=== PATIENT | male | born 1950 | race Caucasian/White ===

== ENCOUNTER → 2018-07-22 09:32 | Outpatient (CLI) | payer OTHER, SELFPAY ==
--- NOTE | 2018-07-22 09:58 | STEWCON_ITS ---
Reason For Study: Pre-Op, Cancer Stress Results Protocol: Dobutamine Stress Echo Maximum Predicted HR: 154 bpm Target HR: 131 bpm% Maximum Pre dicted HR: 90 % DurationHeart Rate Stage (mm:ss) (bpm) BPCom ment Baseline 76 127/96 No Chest Pain; Definity 0.9 ML Given DSE 10 MCG 3:51 91 126/82No Chest Pain DSE 20 MCG 3:00 12 7 137/79No Chest Pain DSE 30 MCG 2:06 13 9 164/84No Chest Pain Recovery 91 141/92 No Chest Pain Stress Duration: 8:57 mm:ss Maximum Stress HR: 139 bpmM ETS: 1 Baseline Echocardiogram Findings Stress Echo Wall motion Data Resting WMIntermediate WMStress WM Resting Wall Motion Wall Motion Stress Mid-Inferior: Hypokinetic. Ejection Fraction 50 %. Anterior [place] : Akinetic. Anterior [place] : Akinetic. Lateral [place] : Akinetic. Inferior [place] : Akinetic. Septall [place] : Akinetic. Lateral [place] : Akinetic. Mid-anteroseptal : Hypokinetic. Septall [place] : Akinetic. Ejection Fraction 35 %. Basal inferoseptal: Hypokinetic. Interpretation Summary Dobutamine stress echocardiogram with contrast. Resting EKG demonstrates normal sinus rhythm with rate of 92 bpm poor R-wave progression is noted evidence of anterior infarct is present. Resting blood pressure is 127/96 mmHg. Debridement was infused starting at 10 mcg/kg/min increasing in 3 minute time periods to a maximum of 30 mcg/kg/min. The maximum heart rate attained was 139 bpm which was 91% of maximum predicted heart rate. The patient maintained sinus rhythm throughout the recording. At rest there were no ST or T- wave changes noted suggest ischemia at peak infusion upsloping ST changes only were noted with no meet the criteria for ischemia. No clinical angina was noted. The resting blood pressure was 127/96 with a peak blood pressure of 164/84 mmHg. Resting echocardiogram. The resting echocardiogram with contrast demonstrated reduced left ventricular systolic function the apex was noted to be akinetic the inferior basal wall noted to be severely hypokinetic, the lateral wall was normal. The anterior wall was also noted to be normal. Dobutamine was infused and images were obtained. At peak infusion the apex remained akinetic in the basal inferior wall similarly remained hypokinetic. There was augmentation of the lateral wall as well as the basal and mid anterior wall. The above is suggestive of a previous extensive infarct involving the anterior apical wall as well as the basal inferior wall. No obvious ischemia or new wall motion abnormalities are noted. Conclusion: Abnormal dobutamine stress echo with abnormal resting echocardiogram as noted above with previous anterior apical and inferior basal infarct. No obvious ischemia noted. Cardiomyopathy present. Ordering Physician: Ketan Inman Referring Physician: Jc John Performed By: Crys Mckenzie, RDCS, RVT
== END ==
PROVIDERS: Family Provider Family Medicine; PCP Family Medicine; Visit Provider Internal Medicine Hematology & Oncology
DX: Z00.6 Encounter for examination for normal comparison and control in clinical research program (principal); C15.5 Malignant neoplasm of lower third of esophagus; R07.89 Other chest pain
CPT/HCPCS: 93017; 93350; J7030; Q9957; A4216; C8928

== ENCOUNTER → 2018-09-16 12:17 | Outpatient (CLI) | payer OTHER, SELFPAY ==
[2018-09-16 13:03] LABS: Absolute Neutrophil Count 5.8 X10^3/uL (2.0-7.7); Basophil# 0.01 X10^3/uL; Basophil% 0.2 % (0-1); Hematocrit 44.1 % (40-54); Hemoglobin 13.5 g/dl (13.0-16.5); Lymphocyte % 4.8 % (19-41); Mean Corp Hgb Conc 30.6 g/gl (32-36); Mean Corpuscular Hgb 30.3 pg (27.0-32.0); Mean Corpuscular Volume 99.1 fL (80-94); Mean Platelet Vol. 11.4 fl (6.2-12.0); Monocyte# 0.04 X10^3/uL; Monocyte% 0.6 % (0-10); Neutrophil # 5.82 X10^3/uL (2.7-7.7); Neutrophil % 93.8 % (47-70); Platelet Count 186 K/mm3 (150-450); RBC Distribution Width CV 15.7 % (11.6-14.6); RBC Distribution Width SD 55.7 fl (35.1-43.9); Red Blood Count 4.45 M/mm3 (4.6-6.2); White Blood Count 6.2 K/mm3 (4.4-11.0)
[2018-09-16 13:05] LABS: Differential Indicated SCAN CRITERIA MET; POSITIVE COUNT NO; POSITIVE DIFFERENTIAL YES; POSITIVE MORPHOLOGY NO
== END ==
PROVIDERS: Family Provider Family Medicine; PCP Family Medicine; Referring Provider Internal Medicine Hematology & Oncology; Visit Provider Internal Medicine Hematology & Oncology
DX: C15.5 Malignant neoplasm of lower third of esophagus (principal)
CPT/HCPCS: 85025

== ENCOUNTER 2019-04-18 10:31 | Inpatient (IN) | payer MEDICARE, SELFPAY ==
[2019-04-18] VITALS (10 sets, daily range): BP systolic 145–164; BP diastolic 76–108; PULSE 108–133; RESP 16–20; TEMP 36.6–37.2; O2SAT 92–100; BMI 30.3; BMI 27.7
--- NOTE | 2019-04-18 | FLU_PTH ---
PATIENT: BUTCH SUH LOC: [facility] U#:[id number] AGE/SX: 69/M ROOM: [facility] RE04/18/[address]: Dr. Miguel Cardenas MD : 1950 BED: 1 DIS: 04/20/2019 SPEC #: [id number] RECD: 04/18/19 16:06 STATUS: MAMTA RELivia #: [id number] ANDREINA: 04/18/19 00:[address]: Miguel Cardenas DEPT: CYTOLOGY RECD BY: Ulises Castanon ENTERED: 04/21/19 09:54 SP TYPE: Fluid OTHR DR: MD Dr. Ketan Salinas DO Dr. Wisam Martini, MD No Primary Care Phys Tissues: PARACENTESIS FLUID Procedures: Special Stain Group II Surgery Specimen Level IV Cytospin Fluid HEADER OPERATION: Ultrasound guided right paracentesis PRE-OP DIAGNOSIS: Ascites, new onset TISSUE SUBMITTED: Paracentesis fluid for cytology DIAGNOSIS CYTOLOGY Ascites fluid, paracentesis, cytology monolayer and cell block: Negative for malignant cells. Mononuclear cells, mesothelial cells, lymphocytes and red blood cells present. CE:deborah 04/22/19 CYTOLOGY STUDY Slides are reviewed. CYTOLOGY GROSS Received is 55 ml of yellow cloudy fluid labeled with the patient's name and and designated per the requisition as paracentesis fluid. Submitted for cytology preparation including cell block. / RB:alejandra 04/21/19 TC:3 CPT: 09008, 48977
--- NOTE | 2019-04-18 10:52 | CT_ITS ---
STUDY: CT ABDOMEN AND PELVIS WITH CONTRAST REASON FOR EXAM: Male, 69 years old. Abdominal distention. Esophageal cancer. RADIATION DOSAGE (If Supplied By Facility): CTDIvol = ( 12.33 ) mGy, DLP = ( 1400.76 ) mGycm TECHNIQUE: Transaxial images were obtained from the dome of the diaphragm to the symphysis pubis without oral contrast. 100 IV Isovue 370 was administered. Sagittal and coronal images were reconstructed. Individualized dose optimization techniques were used for this CT. COMPARISON: None. FINDINGS: Lung bases: Unremarkable. Heart: Suspected low density clot within the left ventricle (axial image 30 series 1004). Liver: Punctate hepatic granuloma (axial image 19 series 1002). No additional hepatic lesions. Portal vein patent. Gallbladder/biliary ducts: Unremarkable. Pancreas: Pancreatic atrophy. Spleen: Tiny splenic granulomas. Adrenal glands: 3 cm right adrenal nodule (axial image 32 series 1002). Kidneys/ureters/bladder: Left renal cyst (axial image 37 series 1002). Tiny right renal cyst (axial image 63 series 1002). Otherwise bilateral normal renal contrast enhancement. Nondistended ureters. Normal urinary bladder. Prostate: Borderline prostatomegaly. Prostate calcifications. Large bowel/small bowel: No acute large bowel or small bowel process. Appendix: Not visualized. No secondary signs of appendicitis. Gastroesophageal junction/stomach: Markedly distended fluid-filled esophagus with thickening (axial images 5 through 21 series 1002). No gastric thickening. No perforation. Retroperitoneum/lymph nodes: No intra-abdominal free air. Extensive intraabdominal/pelvic ascites. No pathologically enlarged lymph nodes. Diffuse heterogeneous mesenteric nodularity (axial image 51 series 1002). Vascular: Vascular calcifications without aneurysm. Osseous structures: Mild degenerative changes. No acute process. Subcutaneous/soft tissues: Small fat-containing inguinal hernias without complication. Small fat-containing umbilical hernia. No acute process. CT/Abdomen/Pelvis W IV Cont ONLY IMPRESSION: Dilated thickened fluid-filled esophagus (statistically related to patient's history of esophageal cancer; aspiration precautions recommended) 3 cm right adrenal nodule concerning for possible metastatic disease Diffuse heterogeneous mesenteric nodularity concerning for 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 : The above information has been verbally conveyed by Bryant Lancaster DO to Gregg Snell MD, on 04/18/2019 13:22:25 (ET). Electronically Signed: Bryant Lancaster DO at 13:18 EDT Tel , Service support ,
[2019-04-18] MEDS: Morphine 4 MG/ML Syringe IV (11:36)
[2019-04-18] MEDS: Ondansetron 4 MG/2 ML Vial IV ×2 (11:36→14:55)
[2019-04-18] MEDS: 0.9% Normal Saline 1,000 ML 125 ML IV ×2 (11:36→17:48)
[2019-04-18 11:42] LABS: Absolute Lymphocyte Count 0.56 X10^3/ul (0.83-4.51); Absolute Neutrophil Count 10.3 X10^3/uL (2.0-7.7); Basophil# 0.02 X10^3/uL; Basophil% 0.2 % (0-1); Eosinophil# 0.06 X10^3/uL; Eosinophils% 0.5 % (0-5); Hematocrit 42.8 % (40-54); Hemoglobin 13.5 g/dl (13.0-16.5); Lymphocyte # 0.56 X10^3/ul (4.0); Lymphocyte % 4.6 % (19-41); Mean Corp Hgb Conc 31.5 g/gl (32-36); Mean Corpuscular Hgb 29.4 pg (27.0-32.0); Mean Corpuscular Volume 93.2 fL (80-94); Mean Platelet Vol. 9.8 fl (6.2-12.0); Monocyte# 1.18 X10^3/uL; Monocyte% 9.7 % (0-10); Neutrophil # 10.28 X10^3/uL (2.7-7.7); Neutrophil % 84.8 % (47-70); Platelet Count 433 K/mm3 (150-450); RBC Distribution Width CV 14.5 % (11.6-14.6); RBC Distribution Width SD 49.2 fl (35.1-43.9); Red Blood Count 4.59 M/mm3 (4.6-6.2); White Blood Count 12.1 K/mm3 (4.4-11.0)
[2019-04-18 11:43] LABS: Differential Indicated SCAN CRITERIA MET; POSITIVE COUNT NO; POSITIVE DIFFERENTIAL YES; POSITIVE MORPHOLOGY NO
[2019-04-18 11:52] LABS: AST(SGOT) 17 U/L (15-37); Alanine Aminotransfer ALT/SGPT 19 U/L (16-61); Albumin, Serum 3.1 g/dL (3.2-5.0); Alkaline Phosphatase 108 U/L (45-117); Anion Gap 2 (5-15); BUN 25 mg/dL (7-18); BUN/Creat Ratio 21.2 RATIO (10-20); Bilirubin, Direct 0.15 mg/dL (0.00-0.30); Calcium,Total 10.5 mg/dL (8.5-10.1); Chloride 100 mmol/L (98-107); Creatinine, Serum 1.18 mg/dL (0.70-1.30); EST Glomerular Filtration Rate 65 mL/min (>60); Est Glom Filt Rate - Afr Amer 79 mL/min (>60); Estimated Creatinine Clearance 60.75 ml/min; Globulin 4.2 g/dL (2.2-4.2); Glucose 121 mg/dL (74-106); Lipase 37 U/L (73-393); Potassium 4.4 mmol/L (3.5-5.1); Protein, Total 7.3 g/dL (6.4-8.2); Sodium Level 134 mmol/L (136-145)
[2019-04-18 12:01] LABS: Lactic Acid 1.5 mmol/L (0.4-2.0)
[2019-04-18 12:03] LABS: Partial Thromboplast Time 30.2 Seconds (24.1-36.2)
[2019-04-18 12:10] LABS: Prothrombin Time (Protime)PT. 13.1 SECONDS (11.7-14.9)
[2019-04-18] MEDS: LORazepam 2 MG/ML Syringe 1 MG IV (12:41)
--- NOTE | 2019-04-18 13:11 | US_ITS ---
PROCEDURE: ULTRASOUND GUIDED PARACENTESIS CLINICAL HISTORY: Male, 69 years old. CONSENT: Time-Out Called: Yes. Consent form signed: Yes. PT-PTT Levels Checked: Yes. SEDATION: TECHNIQUE: FINDINGS: Under ultrasound guidance and the following appropriate antiseptic preparation and local anesthesia. A draining catheter was introduced into the right lower quadrant. 7070 cc of clear yellow fluid were aspirated. 120 ml of fluid were sent to the lab for assessment. US/Paracentesis with US IMPRESSION: Uneventful paracentesis Electronically Signed: Delaney Navarro, at 16:35 EDT Tel , Service support ,
--- NOTE | 2019-04-18 13:23 | ED.RN ---
MILLY WITH [facility] AWARE THAT PT IS HERE. IS NOT SURE THAT THEY HAVE BEDS, OK TO ADMIT TO [facility] FLOOR
--- NOTE | 2019-04-18 14:05 | HP.PCM_ITS ---
Problem List (1) Metastatic cancer Status: Acute (2) Ascites, malignant Status: Acute (3) CAD (coronary artery disease) Status: Chronic Qualifiers: Coronary Disease-Associated Artery/Lesion type: unspecified vessel or lesion type [place] vs. transplanted heart: unspecified whether [place] or transplanted heart Associated angina: angina presence unspecified Qualified Code(s): I25.10 - Atherosclerotic heart disease of [place] coronary artery without angina pectoris (4) Esophageal cancer Status: Chronic Qualifiers: Malignant neoplasm of esophagus location: unspecified location Qualified Code(s): C15.9 - Malignant neoplasm of esophagus, unspecified (5) HTN (hypertension) Status: Chronic Qualifiers: Hypertension type: essential hypertension Qualified Code(s): I10 - Essential (primary) hypertension (6) HLD (hyperlipidemia) Status: Chronic Qualifiers: Hyperlipidemia type: unspecified Qualified Code(s): E78.5 - Hyperlipidemia, unspecified (7) Tobacco use Status: Chronic History of Present Illness Date of Admission: 04/18/19 Chief Complaint: Abdominal pain, dyspnea. The patient is a 69 y/o M w/ PMHx: Recent diagnosis and treatment for esophageal cancer in 2018 with chemotherapy and radiation in [place] at the [facility] [place], [place] but prior to that had been following with Dr. Cooley and Dr. Inman, Tobacco use, Hypertension, Hyperlipidemia, Hx [place] without any PCI interventional needs who presents to the [facility] ED on 04/18/19 with history of several week history of progressively worsening abdominal distention, dyspnea, worse with any exertional attempts as well as onset now abdominal discomfort and noted tenseness of his abdomen with worsening debility and weakness with concurrent poor appetite. Work-up in the ED included T 97.9, heart rate 110, BP 154/92, respiratory rate 17, 99% on room air, CBC with WC 12.1, hemoglobin 13.5, platelet 433 with left shift, unremarkable coags, CMP with sodium 134, BUN/Cr 25/1.18, glucose 121, LA 1.5, lipase 37, ammonia 14, CT abdomen and pelvis with dilated thickened fluid- filled esophagus, 3 cm right adrenal nodule concerning for possible metastatic disease, diffuse heterogeneous mesenteric nodularity concerning for possible mesenteric carcinomatosis with ascites, suspected clot within the left ventricle. Patient underwent paracentesis directed per ED physician with consultation with hospitalist for appropriate diagnostic labs to be obtained concurrently. In the ED patient had been administered normal saline, Zofran, morphine as well as Ativan for anxiety. Past Medical History Past Medical History (Chronic Problems): Chronic Problems CAD (coronary artery disease) (Chronic) Esophageal cancer (Chronic) HTN (hypertension) (Chronic) HLD (hyperlipidemia) (Chronic) Tobacco use (Chronic) Allergies No Known Allergies Allergy (Verified 04/18/19 10:33) Home Medications: Ambulatory Orders Medication Instructions Recorded Atorvastatin Calcium 40 mg PO DAILY 04/18/19 Hydrocodone/Acetaminophen 1 tab PO TID PRN PRN 04/18/19 [Hydrocodone-Acetamin 10-325 mg] Meloxicam 15 mg PO DAILY 04/18/19 Metoprolol Succinate 50 mg PO DAILY 04/18/19 Omeprazole [Prilosec] 40 mg PO DAILY 04/18/19 Surgical History: - - Patient denies any surgical history. Psychiatric History: No pertinent psych hx Lives: Spouse/ Significant Other Smoking Status: Current every day smoker - Patient currently smokes 1/2 pack/day cigarette tobacco usage. Tobacco Use: Cigarettes Alcohol: None Drugs: None - *Family History Maternal History Items: Heart Disease Paternal History Items: - - Patient notes a paternal family history of heart disease as well as chronic COPD with a prior tobacco use history. Review of Systems Constitutional: Reports: Anorexia, Malaise, Weakness, Fatigue. Denies: Chills, Fever, Weight Change HEENT: Denies: Head Aches, Sinus Congestion, Sinus Drainage Cardiovascular: Reports: Orthopnea. Denies: Chest Pain, Palpitations Respiratory: Reports: Shortness of Breath, Shortness of breath at rest, Shortness of breath upon exertion. Denies: Cough, Sputum production, Wheezing Gastrointestinal: Reports: Abdominal Pain, Constipation. Denies: Nausea, Vomiting Genitourinary: Denies: Dysuria Musculoskeletal: Reports: Back Pain, Joint Pain. Denies: Joint Tenderness Skin: Denies: Rash, Wounds Neurological: Denies: Numbness, Tingling, Focal weakness Psychiatric: Denies: Anxiety, Depression, Homicidal Ideations, Suicidal Ideations Hematologic/ Lymphatic: Reports: Easy Bruising, Easy Bleeding VTE Information - Inpt Only VTE Present on Admission: No VTE Mechan Device Prophylaxis: SCD's VTE Pharm Prophylaxis ordered?: Yes Patient Problems: Active and Suspected Problems Metastatic cancer (Acute) Ascites, malignant (Acute) Subjective: Seated upright in the ED bed, fatigued appearance, uncomfortable appearing. Objective: Physical Examination: General: awake, alert, oriented x 3 and cooperative, seated upright in the ED bedside chair, uncomfortable appearing. Skin: normal color, turgor, no icterus, cyanosis. HEENT: AT/NC, EOMI, PERRLA, dry MM, no carotid bruits or JVD noted. Lungs: Diminished breath sounds bilaterally, greater bilateral bases, moderate effort, no rales, ronchi or wheezing. Heart: Regular rate and rhythm; no gallop, rub audible. Abdomen: Tense, generalized discomfort with palpation, notably distended, di stant hypoactive bowel sounds, difficult to assess HSM secondary to distended habitus. Extremities: no cyanosis, clubbing, or edema. Neurological: patient awake, alert, oriented x 3; cognitive function intact; pupils equally reactive to light and accomodation; cranial nerves II-XII grossly normal, moving all 4 extremities, no focal deficits, strength Artley global decreased secondary to acute complaints and ongoing comorbidities. Psychiatric: affect appears fatigued, no acute evidence of depressive or anxiety feelings. - Physical Exam Vital Signs Temp Pulse Resp BP Pulse Ox 97.9 F 108 H 19 H 159/101 H 92 04/18/19 10:33 04/18/19 12:59 04/18/19 12:59 04/18/19 12:59 04/18/19 12:59 Oxygen Delivery Method Room Air Weight: 205 lb 7.533 oz Body Mass Index (BMI) 30.3 Laboratory Tests Past 24 Hrs 04/18/19 04/18/19 04/18/19 11:23 11:23 11:23 WBC 12.1 H RBC 4.59 L Hgb 13.5 Hct 42.8 MCV 93.2 MCH 29.4 MCHC 31.5 L RDW 14.5 RDW Differential 49.2 H Plt Count 433 MPV 9.8 Immature Gran % (Auto) 0.200 Neut % (Auto) 84.8 H Lymph % (Auto) 4.6 L Crisp % (Auto) 9.7 Eos % (Auto) 0.5 Baso % (Auto) 0.2 Absolute Neuts (auto) 10.3 H Absolute Lymphs (auto) 0.56 L Total Counted Not Reportable Differential Comment COMMENT PT 13.1 INR 1.0 APTT 30.2 Sodium 134 L Potassium 4.4 Chloride 100 Carbon Dioxide 32.0 Anion Gap 2 L BUN 25 H Creatinine 1.18 Estim Creat Clear Calc 60.75 Est GFR (MDRD) Af Amer 79 Est GFR (MDRD) Non-Af 65 BUN/Creatinine Ratio 21.2 H Glucose 121 H Lactic Acid Calcium 10.5 H Total Bilirubin 0.60 Direct Bilirubin 0.15 AST 17 ALT 19 Alkaline Phosphatase 108 Total Protein 7.3 Albumin 3.1 L Globulin 4.2 Lipase 37 L 04/18/19 11:23 WBC RBC Hgb Hct MCV MCH MCHC RDW RDW Differential Plt Count MPV Immature Gran % (Auto) Neut % (Auto) Lymph % (Auto) Crisp % (Auto) Eos % (Auto) Baso % (Auto) Absolute Neuts (auto) Absolute Lymphs (auto) Total Counted Differential Comment PT INR APTT Sodium Potassium Chloride Carbon Dioxide Anion Gap BUN Creatinine Estim Creat Clear Calc Est GFR (MDRD) Af Amer Est GFR (MDRD) Non-Af BUN/Creatinine Ratio Glucose Lactic Acid 1.5 Calcium Total Bilirubin Direct Bilirubin AST ALT Alkaline Phosphatase Total Protein Albumin Globulin Lipase Assessment/Plan All Active Problems Metastatic cancer (Acute) Ascites, malignant (Acute) The patient is a 69 y/o M w/ PMHx: Recent diagnosis and treatment for esophageal cancer in 2018 with chemotherapy and radiation in [place] at the [facility] [place], [place] but prior to that had been following with Dr. Cooley and Dr. Inman, Tobacco use, Hypertension, Hyperlipidemia, Hx [place] without any PCI interventional needs who presents to the [facility] ED on 04/18/19 with history of several week history of progressively worsening abdominal distention, dyspnea, worse with any exertional attempts as well as onset now abdominal discomfort and noted tenseness of his abdomen with worsening debility and weakness with concurrent poor appetite. (1) Suspected metastatic cancer with new onset ascites w/ Dyspnea, Malaise, Debility: Work-up in the ED included T 97.9, heart rate 110, BP 154/92, respiratory rate 17, 99% on room air, CBC with WC 12.1, hemoglobin 13.5, platelet 433 with left shift, unremarkable coags, CMP with sodium 134, BUN/Cr 25/1.18, glucose 121, LA 1.5, lipase 37, ammonia 14, CT abdomen and pelvis with dilated thickened fluid-filled esophagus, 3 cm right adrenal nodule concerning for possible metastatic disease, diffuse heterogeneous mesenteric nodularity concerning for possible mesenteric carcinomatosis with ascites, suspected clot within the left ventricle. Will admit patient to PCU, maintain on telemetry, pending paracentesis labs, Dr. Inman and Dr. Uribe office aware and will evaluate patient although will need to await paracentesis lab return to ascertain next step and course of care, repeat a.m. CBC as well as CMP. PT, OT, CM consulted for discharge planning. (2) Possible LV clot: Initial plan had been to admit to [facility] however final read on CT scan of abdomen and pelvis with possible LV clot therefore discussed with cardiology and echocardiogram requested and to be obtained with initiation of heparin drip following paracentesis. If echo unremarkable we will discontinue heparin drip and transition to prophylactic regimen only but suspect a likely possibility. (3) History of esophageal cancer: Diagnosed in 2018 with chemotherapy and radiation at [facility], as noted Dr. Inman consulted and will evaluate, unclear specifically related with #1, CT scan as noted with dilated and thickened fluid-filled esophagus, pending speech evaluation and maintain on aspiration precautions. (4) CAD: No PCI history, maintain on statin, metoprolol, holding aspirin given recent paracentesis and also currently on heparin drip secondary to #2. Add back once appropriate. (5) Hypertension: Continue home regimen including metoprolol, PRN hydralazine. (6) Hyperlipidemia: Continue home statin regimen. (7) Tobacco Abuse: Encouraged cessation, inpatient consultation per RT, NR if desired. (8) GERD: PPI. (9) DVT prophylaxis: SCDs, heparin drip as noted pending echocardiogram results. 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 Discussed that given presentation would benefit from consideration of these discussion amongst themselves. Will maintain full CODE STATUS in interim following discussion of difference between FULL code, DNR-CCA and DNR-CC status. Advanced Care Planning Face to Face Time: 16 minutes. Code Visit Inpatient E&M: 15812 Init Hosp L3 Procedures: 92219 Advncd Care Plan 30 Min
[2019-04-18 16:04] LABS: Pathologist Comment/Body Fluid May follow
--- NOTE | 2019-04-18 16:06 | NURSING ---
talked w/ Flory ER charge nurse, asked if physician is aware of results stating possible clot in left ventricle, states she believes so. Also states pt is a full code to her knowledge. Informed her this RN would contact Dr. Parrish to confirm knowledge. Dr. Parrish sent text
--- NOTE | 2019-04-18 16:07 | NURSING ---
received return call from dr. Parrish discussed CT results including possible clot in left ventricle. aware she is ordering stat ECHO. Echo called. called ER charge nurse again to clarify if pt had his paracentesis, confirmed had, amt drained unknown per Lesley COLON.
--- NOTE | 2019-04-18 16:10 | NURSING ---
recieved call from andrea RN-ER that she called lab for orders to be collected that was not collected in ER
--- NOTE | 2019-04-18 16:26 | NURSING ---
Primary RN informed per preparation supervisor Darrel pt is being transfered to [facility]
--- NOTE | 2019-04-18 16:26 | ED.VISSUMM ---
- ER Visit Summary Date of Service: 04/18/19 Chief Complaint: Abdominal pain History of Present Illness: The patient is a 69 M who states that he has had a progressive abdominal swelling for a while. Patient was treated for esophageal cancer. He was seen Dr. Inman but due to being [facility] was [facility] to the [facility] for the rest of his care. He states that for the past couple days he has been unable to eat anything. He has been able to drink water. He states he cannot catch his breath because he cannot take a deep breath then. He states that he has been passing gas but not having a bowel movements. He notes nausea. He has a smoker. Physical Examination: Afebrile triage heart rate of 110 was 92 on my exam respirations are 17 pulse ox is 98% on room air blood pressure 154/92 Gen: Well-nourished well-developed Head: Normocephalic atraumatic Eyes: Perrl EOMI ENT: TMs clear no rhinorrhea moist mucous membranes Neck: Supple no lymphadenopathy no JVD nontender CVS: Regular rate rhythm no murmurs normal S1-S2 Respiratory: No distress clear to auscultation bilaterally chest nontender Abdomen: Abdomen is tense. Bowel sounds. Nontender Back: Nontender Extremity: Nontender no edema Skin: Normal color no rash Neuro: alert orientated ?3 CN II-XII intact normal strength sensation Psych: Blunted affect Test Results: White count 12.1. Creatinine 1.18. INR 1 PTT 30.2 lactic acid 1.5. Liver enzymes are normal. CT down pelvis demonstrates mesenteric carcinomatosis with ascites. There is a possible left ventricular clots noted by radiology. Emergency Department Course and Treatment: Patient's coags and platelet count are fine. Therefore, I arranged for the patient to have a therapeutic and diagnostic paracentesis with radiology at 1500. Patient received morphine Zofran and Ativan. I asked the hospitalist to evaluate the patient prior to the paracentesis. Plan will be to admit the patient after the paracentesis. Impression: 1. Mesenteric carcinomatosis with ascites This note was generated with [employer] dictation software. It may contain incorrect words, spelling, and punctuation that were not noted in review of the chart prior to signing ED Disposition - Plan for ED Patient: Disposition: Acute Care Hospital [facility]
--- NOTE | 2019-04-18 16:31 | NURSING ---
central registration called and notified that pt will be moving to [facility]
--- NOTE | 2019-04-18 16:36 | ECHOCS_ITS ---
Reason For Study: Arrhythmia Procedure This was a 2D Doppler, Color Flow transthoracic echocardiogram. Exam performed portable in patient room. Left Ventricle Moderate concentric left ventricular hypertrophy. Mid cavitary false tendon noted. Moderately dilated left ventricle. Possible LV apical thrombus noted. The estimated ejection fraction is 35 %. Unable to assess diastolic dysfunction due to arrhythmia. Inferior [place] : Akinetic. Anterior [place] : Akinetic. Right Ventricle Mildly dilated right ventricle. Normal systolic function. Atria Normal left atrium. Normal right atrium. Normal atrial septum. Mitral Valve The mitral valve is structurally normal. No prolapse or stenosis seen. Tricuspid Valve Normal tricuspid valve. Trivial tricuspid valve insufficiency. Right ventricular systolic pressure estimated to be 40 mmHg. Mild pulmonary hypertension. Aortic Valve Normal aortic valve. Trisinus/trileaflet aortic valve. Pulmonic Valve Normal pulmonic valve. Trivial pulmonic valve insufficiency. Great Vessels Normal aortic root. Normal arch. Normal inferior vena cava. Inferior vena cava collapse with sniff. Pericardium/Pleural No pericardial effusion. Small left pleural effusion. Possible ascites noted. Medication Diluted definity 3ml given slow IV push to enhance endocardial definition. MMode/2D Measurements & Calculations LVIDd: 5.7 cm IVSd: 1.8 cm Ao root diam: 3.9 cm LVIDs: 4.7 cm LVPWd: 1.4 cm RVDd: 3.9 cm FS: 17.5 % LAV(MOD-bp): 47.0 ml LA A4 area: 17.8 cm2 LA dimension(2D): 3.8 cm LAV(MOD-bp) Indexed: 22.5 ml/m2 LAV(MOD-sp2): 36.7 ml LAV(MOD-sp4): 47.4 ml RA A4 area: 13.4 cm2 Doppler Measurements & Calculations MV E max stan: 40.0 cm/sec Lat Peak E' Stan: 5.0 cm/sec Med Peak E' Stan: 5.2 cm/sec MV A max stan: 100.0 cm/sec E/E' lat: 7.9 E/E' med: 7.7 MV E/A: 0.40 Ao V2 max: 135.1 cm/sec LV V1 max: 110.2 cm/sec PA V2 max: 170.6 cm/sec Ao max P.3 mmHg LV V1 max P.9 mmHg Ao V2 mean: 97.9 cm/sec Ao mean P.1 mmHg Ao V2 VTI: 19.9 cm PI end-d stan: 143.4 cm/sec TR max stan: 294.8 cm/sec TR max P.8 mmHg Interpretation Summary Moderate concentric left ventricular hypertrophy. Moderately dilated left ventricle. The estimated ejection fraction is 35 %. Unable to assess diastolic dysfunction due to arrhythmia. Inferior [place] : Akinetic. Anterior [place] : Akinetic. Possible 1.4 x 1.1 LV apical thrombus noted. Trivial tricuspid valve insufficiency. Right ventricular systolic pressure estimated to be 40 mmHg. Mild pulmonary hypertension. Possible ascites noted. STAT echo results conveyed to Dr Parrish at [id number] The study was technically difficult. Contrast injection was performed. There is no comparison study available. Ordering Physician: Suki Parrish Referring Physician: Suki Parrish Performed By: Crys Mckenzie RDCS, RVT
[2019-04-18 17:05] LABS: Body Fluid Mononuclear WBC % 91.9 %; Body Fluid Polynuclear WBC # 0.023 10^3/uL; Body Fluid Polynuclear WBC % 8.1 %; Body Fluid Total Cells Counted 0.368 10^3/ul; White Blood Count/Body Fluid 0.283 10^3/uL
[2019-04-18 17:38] LABS: Red Cell Count/Body Fluid 22 /mm3
[2019-04-18] MEDS: HEPARIN/D5w 25,000 UNITS 25,000 UNITS/250 ML IV.SOLN. 12 UNITS IV (17:48)
[2019-04-18] MEDS: Heparin Injection (Vial) 5,000 UNIT/ML VIAL 6000 UNIT IV (17:50)
[2019-04-18] MEDS: Pantoprazole Sodium 40 MG Tablet PO (17:50)
[2019-04-18 17:58] LABS: Magnesium 2.4 mg/dL (1.6-2.6); Phosphorus 4.1 mg/dL (2.5-4.9)
[2019-04-18 18:04] LABS: Glucose, Body Fluid 104 mg/dL (40-70); LDH,Body Fluid 171 Units/l (Not Establ.); Protein, Body Fluid 4.1 g/dL (Not Establ.)
[2019-04-18 18:07] LABS: Auto B Fluid Analyzer BKGD Ct COUNTS W/IN LIMITS (W/IN LIMITS)
[2019-04-18 18:08] LABS: Lymphocytes 30 %; Monocytes 5 %; Neutrophil (Segs) 13 %
[2019-04-18 18:09] LABS: Body Fluid QC Type(s) BF1Q; Mesothelial Cells 48 %; Other Cell Type/BF 4 %
[2019-04-18 18:15] LABS: Specific Gravity, Body Fluid 1.027
[2019-04-18 18:25] LABS: Appearance/Body Fluid SL CLDY; Color/Body Fluid YELLOW; Source- Body Fluid OTHER
[2019-04-18] MEDS: LORazepam 0.5 MG Tablet PO (20:46)
[2019-04-18] MEDS: Atorvastatin Calcium 40 MG Tablet PO (20:46)
[2019-04-18] MEDS: oxyCODONE 5 MG Tablet PO (21:54)
[2019-04-18 23:47] LABS: Partial Thromboplast Time 43.6 Seconds (24.1-36.2)
[2019-04-19] VITALS (13 sets, daily range): BP systolic 118–144; BP diastolic 75–89; PULSE 96–115; RESP 15–20; TEMP 36.6–36.8; O2SAT 95–99
[2019-04-19] MEDS: Heparin Injection (Vial) 5,000 UNIT/ML VIAL IV ×4 (00:08→21:36)
[2019-04-19] MEDS: Mag Hydrox/Al Hydrox/Simeth 30 ML UDC PO ×2 (00:09→12:12)
[2019-04-19] MEDS: 0.9% Normal Saline 1,000 ML 125 ML IV ×2 (00:11→08:25)
[2019-04-19 06:32] LABS: Absolute Lymphocyte Count 0.39 X10^3/ul (0.83-4.51); Absolute Neutrophil Count 16.2 X10^3/uL (2.0-7.7); Basophil# 0.01 X10^3/uL; Basophil% 0.1 % (0-1); Hematocrit 43.3 % (40-54); Hemoglobin 13.4 g/dl (13.0-16.5); Lymphocyte # 0.39 X10^3/ul (4.0); Lymphocyte % 2.2 % (19-41); Mean Corp Hgb Conc 30.9 g/gl (32-36); Mean Corpuscular Hgb 28.6 pg (27.0-32.0); Mean Corpuscular Volume 92.5 fL (80-94); Mean Platelet Vol. 10.1 fl (6.2-12.0); Monocyte# 1.17 X10^3/uL; Monocyte% 6.6 % (0-10); Neutrophil # 16.21 X10^3/uL (2.7-7.7); Neutrophil % 90.8 % (47-70); Platelet Count 403 K/mm3 (150-450); RBC Distribution Width CV 14.4 % (11.6-14.6); RBC Distribution Width SD 47.2 fl (35.1-43.9); Red Blood Count 4.68 M/mm3 (4.6-6.2); White Blood Count 17.8 K/mm3 (4.4-11.0)
[2019-04-19 06:35] LABS: Anion Gap 3 (5-15); BUN 29 mg/dL (7-18); BUN/Creat Ratio 26.4 RATIO (10-20); Chloride 103 mmol/L (98-107); Differential Indicated SCAN CRITERIA MET; EST Glomerular Filtration Rate 71 mL/min (>60); Est Glom Filt Rate - Afr Amer 86 mL/min (>60); Estimated Creatinine Clearance 65.17 ml/min; Glucose 158 mg/dL (74-106); POSITIVE COUNT NO; POSITIVE DIFFERENTIAL YES; POSITIVE MORPHOLOGY NO; Potassium 4.8 mmol/L (3.5-5.1); Sodium Level 136 mmol/L (136-145)
[2019-04-19 06:49] LABS: Partial Thromboplast Time 41.3 Seconds (24.1-36.2)
[2019-04-19] MEDS: Metoprolol(XL)Succ 100 MG Tablet 50 MG PO (08:27)
[2019-04-19] MEDS: Pantoprazole Sodium 40 MG Tablet PO ×2 (08:27→20:34)
[2019-04-19] MEDS: LORazepam 0.5 MG Tablet PO ×3 (08:29→21:30)
[2019-04-19] MEDS: oxyCODONE 5 MG Tablet PO ×3 (08:29→21:30)
--- NOTE | 2019-04-19 08:55 | PCM.PROGNOTE ---
Patient Problems: Active and Suspected Problems Metastatic cancer (Acute) Ascites, malignant (Acute) Subjective: Chief complaint: Follow-up after admission for massive ascites, suspected metastatic cancer, possible left ventricular blood clot. Patient seen and examined. No acute events overnight. He mentioned that he could not sleep on the bed last night because it was very uncomfortable. His abdomen distention and pain improved, shortness of breath as well. Patient is depressed and he provides limited history. He denied chest pain, palpitation, dizziness or lightheadedness. He denied increasing abdominal pain. Denies fever or chills. He is afebrile, slightly tachycardic, blood pressure is maintained, pulse ox is 98% on 2 L. - Physical Exam General: Alert, Oriented x3, Cooperative, No apparent distress HEENT: Atraumatic, PERRLA, EOMI, Normocephalic Oral: Moist Mucosa, No Gingival or Mucosal Lesions/ Ulcerations Neck: Supple, No JVD, Negative Carotid Bruits, Trachea Midline, Thyroid Normal Size and Texture Lungs: No wheeze, No rales, Diminished, Rhonchi, - - Decreased breath sounds bilateral, bilateral rhonchi, transmitted sounds. Cardiovascular: Regular rate, Regular Rhythm, Normal S1, Normal S2, PMI Normal, Tachycardic Abdomen: Bowel Sounds Present, Non Tender, No Hepato-splenomegaly, Distended, - - Ascites. Extremities: No clubbing, No cyanosis, No edema Skin: No rashes, No breakdown Lymphatic: No Cervical, Supraclavicular, or Inguinal Adenopathy Neurological: Cranial nerves II-XII grossly intact, Motor Exam 5/5 strength throughout Psych/Mental Status: Flat Affect, Alert and oriented to time, place, person, mood and affect Vital Signs Temp Pulse Resp BP Pulse Ox 98.2 F 107 H 18 118/89 H 95 04/19/19 08:22 04/19/19 08:27 04/19/19 08:22 04/19/19 08:27 04/19/19 08:22 Oxygen Flow Rate (L/min) 2 Oxygen Delivery Method [11] Room Air Oxygen Delivery Method [10] Room Air Oxygen Delivery Method [9] Room Air Oxygen Delivery Method [8] Room Air Oxygen Delivery Method [7] Room Air Oxygen Delivery Method [6] Room Air Oxygen Delivery Method [5] Room Air Oxygen Delivery Method [4] Room Air Oxygen Delivery Method [3] Room Air Oxygen Delivery Method [2] Room Air Oxygen Delivery Method [1 ( Room Air Initial Baseline)] Oxygen Delivery Method Room Air Weight: 187 lb 13.341 oz Body Mass Index (BMI) 27.7 Intake and Output for Last 24 Hours 04/17/19 04/18/19 04/19/19 23:59 23:59 23:59 Intake Total 1326.3 / 1326.3 832.1 / 832.1 Output Total 575 / 575 325 / 325 Balance 751.3 / 751.3 507.1 / 507.1 Microbiology Past 72 Hours 04/18/19 15:15 Gram Stain - Preliminary Fluid - Ascites Laboratory Tests Past 24 Hrs 04/18/19 04/18/19 04/18/19 11:23 11:23 11:23 WBC 12.1 H RBC 4.59 L Hgb 13.5 Hct 42.8 MCV 93.2 MCH 29.4 MCHC 31.5 L RDW 14.5 RDW Differential 49.2 H Plt Count 433 MPV 9.8 Immature Gran % (Auto) 0.200 Neut % (Auto) 84.8 H Lymph % (Auto) 4.6 L [place] % (Auto) 9.7 Eos % (Auto) 0.5 Baso % (Auto) 0.2 Absolute Neuts (auto) 10.3 H Absolute Lymphs (auto) 0.56 L Total Counted Not Reportable Differential Comment COMMENT PT 13.1 INR 1.0 APTT 30.2 Sodium 134 L Potassium 4.4 Chloride 100 Carbon Dioxide 32.0 Anion Gap 2 L BUN 25 H Creatinine 1.18 Estim Creat Clear Calc 60.75 Est GFR (MDRD) Af Amer 79 Est GFR (MDRD) Non-Af 65 BUN/Creatinine Ratio 21.2 H Glucose 121 H Lactic Acid Calcium 10.5 H Phosphorus Magnesium Total Bilirubin 0.60 Direct Bilirubin 0.15 AST 17 ALT 19 Alkaline Phosphatase 108 Ammonia Total Protein 7.3 Albumin 3.1 L Globulin 4.2 Lipase 37 L Fluid Source Fluid Color Fluid Appearance Fluid Specific Grav Fluid pH Fluid WBC Fluid RBC Fluid Tot Cell Count Fld Polynuclear WBCs # Fld Polynuclear WBCs % Fluid Mononuclear WBCs Fld Mononuclear WBCs % Fluid Neutrophils Fluid Lymphocytes Fluid Monocytes Fld Mesothelial Cells Fluid Other Cells Fl Pathologist Comment Fluid Glucose Fluid Total Protein Fluid LDH Fluid Comment 2 Miscellaneous Cytology 04/18/19 04/18/19 04/18/19 11:23 11:23 15:15 WBC RBC Hgb Hct MCV MCH MCHC RDW RDW Differential Plt Count MPV Immature Gran % (Auto) Neut % (Auto) Lymph % (Auto) [place] % (Auto) Eos % (Auto) Baso % (Auto) Absolute Neuts (auto) Absolute Lymphs (auto) Total Counted Differential Comment PT INR APTT Sodium Potassium Chloride Carbon Dioxide Anion Gap BUN Creatinine Estim Creat Clear Calc Est GFR (MDRD) Af Amer Est GFR (MDRD) Non-Af BUN/Creatinine Ratio Glucose Lactic Acid 1.5 Calcium Phosphorus 4.1 Magnesium 2.4 Total Bilirubin Direct Bilirubin AST ALT Alkaline Phosphatase Ammonia Total Protein Albumin Globulin Lipase Fluid Source Fluid Color Fluid Appearance Fluid Specific Grav Fluid pH Fluid WBC Fluid RBC Fluid Tot Cell Count Fld Polynuclear WBCs # Fld Polynuclear WBCs % Fluid Mononuclear WBCs Fld Mononuclear WBCs % Fluid Neutrophils Fluid Lymphocytes Fluid Monocytes Fld Mesothelial Cells Fluid Other Cells Fl Pathologist Comment Fluid Glucose 104 H Fluid Total Protein 4.1 Fluid LDH 171 Fluid Comment 2 Miscellaneous Cytology 04/18/19 04/18/19 04/18/19 15:15 15:15 16:06 WBC RBC Hgb Hct MCV MCH MCHC RDW RDW Differential Plt Count MPV Immature Gran % (Auto) Neut % (Auto) Lymph % (Auto) [place] % (Auto) Eos % (Auto) Baso % (Auto) Absolute Neuts (auto) Absolute Lymphs (auto) Total Counted Differential Comment PT INR APTT Sodium Potassium Chloride Carbon Dioxide Anion Gap BUN Creatinine Estim Creat Clear Calc Est GFR (MDRD) Af Amer Est GFR (MDRD) Non-Af BUN/Creatinine Ratio Glucose Lactic Acid Calcium Phosphorus Magnesium Total Bilirubin Direct Bilirubin AST ALT Alkaline Phosphatase Ammonia Total Protein Albumin Globulin Lipase Fluid Source OTHER Fluid Color YELLOW Fluid Appearance SL CLDY Fluid Specific Grav 1.027 Fluid pH Pending Fluid WBC 0.283 Fluid RBC 22 Fluid Tot Cell Count 0.368 Fld Polynuclear WBCs # 0.023 Fld Polynuclear WBCs % 8.1 Fluid Mononuclear WBCs 0.260 Fld Mononuclear WBCs % 91.9 Fluid Neutrophils 13 Fluid Lymphocytes 30 Fluid Monocytes 5 Fld Mesothelial Cells 48 Fluid Other Cells 4 Fl Pathologist Comment May follow Fluid Glucose Fluid Total Protein Fluid LDH Fluid Comment 2 SEE COMMENT Miscellaneous Cytology Pending 04/18/19 04/18/19 04/19/19 16:32 23:25 06:10 WBC RBC Hgb Hct MCV MCH MCHC RDW RDW Differential Plt Count MPV Immature Gran % (Auto) Neut % (Auto) Lymph % (Auto) [place] % (Auto) Eos % (Auto) Baso % (Auto) Absolute Neuts (auto) Absolute Lymphs (auto) Total Counted Differential Comment PT INR APTT 43.6 H Sodium 136 Potassium 4.8 Chloride 103 Carbon Dioxide 30.0 Anion Gap 3 L BUN 29 H Creatinine 1.10 Estim Creat Clear Calc 65.17 Est GFR (MDRD) Af Amer 86 Est GFR (MDRD) Non-Af 71 BUN/Creatinine Ratio 26.4 H Glucose 158 H Lactic Acid Calcium 9.0 Phosphorus Magnesium Total Bilirubin Direct Bilirubin AST ALT Alkaline Phosphatase Ammonia 14.0 Total Protein Albumin Globulin Lipase Fluid Source Fluid Color Fluid Appearance Fluid Specific Grav Fluid pH Fluid WBC Fluid RBC Fluid Tot Cell Count Fld Polynuclear WBCs # Fld Polynuclear WBCs % Fluid Mononuclear WBCs Fld Mononuclear WBCs % Fluid Neutrophils Fluid Lymphocytes Fluid Monocytes Fld Mesothelial Cells Fluid Other Cells Fl Pathologist Comment Fluid Glucose Fluid Total Protein Fluid LDH Fluid Comment 2 Miscellaneous Cytology 04/19/19 04/19/19 06:10 06:10 WBC 17.8 H RBC 4.68 Hgb 13.4 Hct 43.3 MCV 92.5 MCH 28.6 MCHC 30.9 L RDW 14.4 RDW Differential 47.2 H Plt Count 403 MPV 10.1 Immature Gran % (Auto) 0.300 Neut % (Auto) 90.8 H Lymph % (Auto) 2.2 L [place] % (Auto) 6.6 Eos % (Auto) 0.0 Baso % (Auto) 0.1 Absolute Neuts (auto) 16.2 H Absolute Lymphs (auto) 0.39 L Total Counted Not Reportable Differential Comment PT INR APTT 41.3 H Sodium Potassium Chloride Carbon Dioxide Anion Gap BUN Creatinine Estim Creat Clear Calc Est GFR (MDRD) Af Amer Est GFR (MDRD) Non-Af BUN/Creatinine Ratio Glucose Lactic Acid Calcium Phosphorus Magnesium Total Bilirubin Direct Bilirubin AST ALT Alkaline Phosphatase Ammonia Total Protein Albumin Globulin Lipase Fluid Source Fluid Color Fluid Appearance Fluid Specific Grav Fluid pH Fluid WBC Fluid RBC Fluid Tot Cell Count Fld Polynuclear WBCs # Fld Polynuclear WBCs % Fluid Mononuclear WBCs Fld Mononuclear WBCs % Fluid Neutrophils Fluid Lymphocytes Fluid Monocytes Fld Mesothelial Cells Fluid Other Cells Fl Pathologist Comment Fluid Glucose Fluid Total Protein Fluid LDH Fluid Comment 2 Miscellaneous Cytology Clinical Impression(s) from Imaging Studies Abdomen/Pelvis CT 04/18/19 10:52 IMPRESSION: Dilated thickened fluid-filled esophagus (statistically related to patient's history of esophageal cancer; aspiration precautions recommended) 3 cm right adrenal nodule concerning for possible metastatic disease Diffuse heterogeneous mesenteric nodularity concerning for 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 : The above information has been verbally conveyed by Bryant Lancaster DO to Gregg Snell MD, on 04/18/2019 13:22:25 (ET). 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 : The above information has been verbally conveyed by Bryant Lancaster DO to Dr Channing MD, on 04/18/2019 13:33:56 (ET). Electronically Signed: Bryant Lancaster DO at 13:18 EDT Tel , Service support , Paracentesis Ultrasound 04/18/19 13:11 IMPRESSION: Uneventful paracentesis Electronically Signed: Delaney Navarro, at 16:35 EDT Tel , Service support , Medical Necessity - Tobacco Use Smoking Status: Current every day smoker Tobacco Use: Cigarettes Assessment/Plan All Active Problems Metastatic cancer (Acute) Ascites, malignant (Acute) This is a 69 years old male patient presented to the emergency room because of abdominal pain with mild shortness of breath, was found to have massive ascites status post diagnostic and therapeutic paracentesis, found to have possible left ventricular apical thrombus with ejection fraction of 35%. #1 massive ascites/metastatic cancer: Probably malignant, status post paracentesis. Ascitic fluid analysis reviewed, ascitic fluid cytology pending. CT scan abdomen and pelvis with IV contrast revealed right adrenal nodule, diffuse heterogenous mesenteric nodularity concerning for mesenteric carcinomatosis with ascites. The morphine and OxyIR PRN for pain, on IV fluids. He is slightly tachycardic, blood pressure is stable, pulse ox is maintained on room air and he is afebrile. Oncology consulted. Awaiting ascitic fluid cytology results. Plan to continue same treatment, repeat CBC and BMP tomorrow morning. #2 probable left ventricular thrombus: Started on IV heparin drip. 2D echocardiogram revealed moderate LVH, EF of 35%, other findings reviewed as below. EKG was not done. Plan: EKG, continue IV heparin drip, cardiology consult. #3 cardiomyopathy: Ejection fraction of 35%. 2D echocardiogram revealed ejection fraction of 35%, moderately dilated left ventricle, akinetic inferior apex, anterior apex, possible LV apical thrombus, RVSP 40 consistent with mild pulmonary hypertension. At this time, no evidence of acute CHF. Patient has history of CAD but no intervention in the past. He had stress echocardiogram back on January, that revealed ejection fraction of 35% as well. Cardiology consulted. #4 esophageal cancer: Diagnosed on August,, received chemotherapy and radiation. He has been following up with Dr. Inman. CT scan abdomen findings reviewed, revealed dilated and thickened fluid-filled esophagus. Oncology consulted. #5 CAD: Without prior interventions. Patient denies any chest pain. He is on IV heparin drip as above, continue statins, started on beta-blockers. Cardiology consulted. #6 hypertension: Blood pressure stable, started back on metoprolol. #7 hyperlipidemia: Stable, continue statins. #8 GERD: Continue PPI. #9 DVT prophylaxis: On IV heparin drip. This note was generated with [employer] software. It may contain incorrect words, spelling, and punctuation that were not noted in checking the note before signing. Code Visit Inpatient E&M: 32794 Subs Hosp L3
--- NOTE | 2019-04-19 11:18 | PCM.CONS.C ---
Reason for Consult Date of Consultation: 04/19/19 Reason for Consultation: LV apical thrombus History of Present Illness: The patient is a 69 year old M with history of esophageal cancer status post chemo and radiation therapy, who presented to the hospital with abdominal pain and fullness associated with ascites. He was tapped in the emergency room. CT scan of the abdomen and pelvis showed possibility of intra-abdominal metastases including the right adrenal gland. 2D echocardiogram was performed yesterday, which showed moderate cardiomyopathy with an EF of 35%. Also suggested the possibility of an apical thrombus associated with akinesis of the apex. Of note the patient had an stress test back in June of last year which showed a resting ejection fraction of 35% at the time. Currently he has no complaints except for some abdominal fullness and tenderness. Oncology consultation has been performed this morning. We are still waiting on the analysis of the ascites fluid. If positive, this would represent metastatic cancer to his intra-abdominal cavity. His overall prognosis will depend on that. Any further cardiac work-up will depend on his overall prognosis. He denies any chest pain chest discomfort dizziness syncope or heart palpitations. He was having shortness of breath due to his distended abdomen. [] Past Medical History Allergies/Adverse Reactions: Allergies No Known Allergies Allergy (Verified 04/18/19 10:33) Home Medications: Ambulatory Orders Medication Instructions Recorded Atorvastatin Calcium 40 mg PO DAILY 04/18/19 Hydrocodone/Acetaminophen 1 tab PO TID PRN PRN 04/18/19 [Hydrocodone-Acetamin 10-325 mg] Meloxicam 15 mg PO DAILY 04/18/19 Metoprolol Succinate 50 mg PO DAILY 04/18/19 Omeprazole [Prilosec] 40 mg PO DAILY 04/18/19 Past Medical History (Chronic Problems): Chronic Problems CAD (coronary artery disease) (Chronic) Esophageal cancer (Chronic) HTN (hypertension) (Chronic) HLD (hyperlipidemia) (Chronic) Tobacco use (Chronic) Surgical History: - - Patient denies any surgical history. Psychiatric History: No pertinent psych hx - *Family History Maternal History Items: Heart Disease Paternal History Items: - - Patient notes a paternal family history of heart disease as well as chronic COPD with a prior tobacco use history. Lives: Spouse/ Significant Other Smoking Status: Current every day smoker Tobacco Use: Cigarettes Alcohol: None Drugs: None Review of Systems - Review of Systems General: Reports: Fever. Denies: Fatigue, Night Sweats Cardiovascular: Denies: Chest Discomfort, Shortness of Breath, Orthopnea, PND, Peripheral Edema, Palpitations, Lightheadedness, Dizziness, Near Syncope, Syncope Respiratory: Denies: Cough, Sputum Production, Hemoptysis Gastrointestinal: Denies: Hematemesis, Hematochezia, Melena Genitourinary: Denies: Dysuria, Hematuria Skin: Denies: Rash Objective: Vital Signs Temp Pulse Resp BP Pulse Ox 98.2 F 107 H 18 118/89 H 95 04/19/19 08:22 04/19/19 08:27 04/19/19 08:22 04/19/19 08:27 04/19/19 08:22 Oxygen Flow Rate (L/min) 2 Oxygen Delivery Method [11] Room Air Oxygen Delivery Method [10] Room Air Oxygen Delivery Method [9] Room Air Oxygen Delivery Method [8] Room Air Oxygen Delivery Method [7] Room Air Oxygen Delivery Method [6] Room Air Oxygen Delivery Method [5] Room Air Oxygen Delivery Method [4] Room Air Oxygen Delivery Method [3] Room Air Oxygen Delivery Method [2] Room Air Oxygen Delivery Method [1 ( Room Air Initial Baseline)] Oxygen Delivery Method Room Air Weight: 187 lb 13.341 oz Body Mass Index (BMI) 27.7 Intake and Output for Last 24 Hours 04/17/19 04/18/19 04/19/19 23:59 23:59 23:59 Intake Total 1326.3 / 1326.3 832.1 / 832.1 Output Total 575 / 575 325 / 325 Balance 751.3 / 751.3 507.1 / 507.1 General: Awake, Alert, Oriented x 3 HEENT: PERRL, EOMI, Sclera Non Icteric Neck: Supple, Good ROM, No Lymph Node Enlargement Lungs: Clear to auscultation Cardiovascular: Regular Rhythm, Normal S1, Normal S2, No Murmurs, No Rubs, No Gallops Abdomen: Bowel Sounds Present, Soft, Distended Extremities: No Cyanosis, No Clubbing, No edema Neurological: No Focal Motor or Sensory Deficit 04/18/19 11:23: WBC 12.1 H, RBC 4.59 L, Hgb 13.5, Hct 42.8, MCV 93.2, MCH 29.4, MCHC 31.5 L, RDW 14.5, RDW Differential 49.2 H, Plt Count 433, MPV 9.8, Immature Gran % (Auto) 0.200, Neut % (Auto) 84.8 H, Lymph % (Auto) 4.6 L, [place] % (Auto) 9.7, Eos % (Auto) 0.5, Baso % (Auto) 0.2, Absolute Neuts (auto) 10.3 H, Total Counted Not Reportable 04/18/19 11:23: PT 13.1, INR 1.0, APTT 30.2 04/18/19 11:23: Sodium 134 L, Potassium 4.4, Chloride 100, Carbon Dioxide 32.0, Anion Gap 2 L, BUN 25 H, Creatinine 1.18, Est GFR (MDRD) Af Amer 79, Est GFR (MDRD) Non-Af 65, BUN/Creatinine Ratio 21.2 H, Glucose 121 H, Calcium 10.5 H, Total Bilirubin 0.60, Direct Bilirubin 0.15 04/18/19 11:23: Lactic Acid 1.5 04/18/19 11:23: Phosphorus 4.1, Magnesium 2.4 04/18/19 23:25: APTT 43.6 H 04/19/19 06:10: Sodium 136, Potassium 4.8, Chloride 103, Carbon Dioxide 30.0, Anion Gap 3 L, BUN 29 H, Creatinine 1.10, Est GFR (MDRD) Af Amer 86, Est GFR (MDRD) Non-Af 71, BUN/Creatinine Ratio 26.4 H, Glucose 158 H, Calcium 9.0 04/19/19 06:10: WBC 17.8 H, RBC 4.68, Hgb 13.4, Hct 43.3, MCV 92.5, MCH 28.6, MCHC 30.9 L, RDW 14.4, RDW Differential 47.2 H, Plt Count 403, MPV 10.1, Immature Gran % (Auto) 0.300, Neut % (Auto) 90.8 H, Lymph % (Auto) 2.2 L, [place] % (Auto) 6.6, Eos % (Auto) 0.0, Baso % (Auto) 0.1, Absolute Neuts (auto) 16.2 H, Total Counted Not Reportable 04/19/19 06:10: APTT 41.3 H Rhythm: EKG: ECHO: Stress Test: Cardiac Cath: PCI: CT Surgery: Holter monitor: EPS: PPM: CXR: Chest CT Scan: Assessment/Plan Impression: 1. Moderate cardiomyopathy, with an ejection fraction of 35%, first detected in June 2018. 2. Probable left ventricular apical thrombus 3. History of esophageal cancer status post chemotherapy and radiation therapy 4. Abdominal ascites, with possible intra-abdominal metastases Plan: Any further cardiac work-up for his cardiomyopathy would depend on his prognosis in regards to his possible metastatic cancer. If there are no plans for any invasive procedures and/or surgeries in the near future, I would recommend for him to be on Coumadin therapy as long as there are no contraindications. I will also start him on low-dose beta-blockers.
--- NOTE | 2019-04-19 11:53 | ONC.CON.INP2 ---
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 ? 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 ? He began developing progressive dysphasia several months ago. He underwent evaluation at the [facility] in [place]. ? EGD performed on 06/17/2018 demonstrated an irregular, obstructing and hypoechoic mass noted at the distal esophagus that could not be traversed with the EUS scope. It appeared to invade into the adventitia. T3 by ultrasound criteria. Note was made of regional metastasis felt to be N1 (2 oval hypoechoic malignant appearing lymph nodes largest measuring 7 x 6 mm found in the mediastinum at station 8). ? Biopsy demonstrated invasive, poorly differentiated adenocarcinoma. ? PET scan demonstrated enlarged hypermetabolic lingual tonsils that appeared symmetric in nature. There was also some uptake of activity in the parotid and submandibular glands which was also equally asymmetric. There is distention of the proximal esophagus and stasis of fluid. Significant wall thickening noted at the distal esophagus extending into the GE junction. Mild to moderate uptake was noted in that region. Enlarged lymph nodes in the gastrohepatic ligament measuring up to 2.6 cm x 1.8 cm were also observed. There was mild FDG uptake. The right adrenal gland continue nodule measuring 2.4 x 3.2 cm with absence of hypermetabolic activity. Hounsfield units was 7 suggesting benign nodule. No enlarged hypermetabolic lymph nodes were noted in the chest. There was a 2 mm non-FDG avid nodule in the right upper lobe. ? Patient's insurance initially denied coverage here but then he was seen at [place] [facility] [place] [facility] [place] given clearance to receive therapy here. He was not a candidate for clinical trial secondary to resting ejection fraction 35%. ? Previous therapy: 1) Concurrent chemotherapy with carboplatin/paclitaxel and radiation (5040 cGy in 28 fractions) completed 09/18/2018 patient was then referred back to thoracic surgery at the [facility] at [facility]. He presented to the emergency department last night with a several month history of progressive nausea, abdominal pain and bloating. CT A/P 04/18/2019: vickey bases: Unremarkable. Heart: Suspected low density clot within the left ventricle (axial image 30 series 1004). Liver: Punctate hepatic granuloma (axial image 19 series 1002). No additional hepatic lesions. Portal vein patent. Gallbladder/biliary ducts: Unremarkable. Pancreas: Pancreatic atrophy. Spleen: Tiny splenic granulomas. Adrenal glands: 3 cm right adrenal nodule (axial image 32 series 1002). Kidneys/ureters/bladder: Left renal cyst (axial image 37 series 1002). Tiny right renal cyst (axial image 63 series 1002). Otherwise bilateral normal renal contrast enhancement. Nondistended ureters. Normal urinary bladder. Prostate: Borderline prostatomegaly. Prostate calcifications. Large bowel/small bowel: No acute large bowel or small bowel process. Appendix: Not visualized. No secondary signs of appendicitis. Gastroesophageal junction/stomach: Markedly distended fluid-filled esophagus with thickening (axial images 5 through 21 series 1002). No gastric thickening. No perforation. Retroperitoneum/lymph nodes: No intra-abdominal free air. Extensive intraabdominal/pelvic ascites. No pathologically enlarged lymph nodes. Diffuse heterogeneous mesenteric nodularity (axial image 51 series 1002). Vascular: Vascular calcifications without aneurysm. Osseous structures: Mild degenerative changes. No acute process. Subcutaneous/soft tissues: Small fat-containing inguinal hernias without complication. Small fat-containing umbilical hernia. No acute process. Underwent ultrasound-guided paracentesis. 7070 ml fluid removed. Cytology pending. he's not having dysphagia. Speech therapist was in the room when I examined the patient and she told me the patient had no trouble with aspiration or getting food bolus down. He is not having odynophagia. He's been having a lot of heartburn and occasional vomiting. This is somewhat improved after paracentesis but still persistent. I personally reviewed the CT scan images. Esophagus is dilated and fluid-filled. He denies palpitation and chest pressure. He's not had lower extremity swelling or edema. He does not feel short of breath at rest. He has baseline neuropathy of undetermined etiology of the lower extremities. The symptom predated his chemotherapy. He is currently living back [place] [facility]. The patient is very unclear about his oncologic management over the last 6 months. I have not received any correspondence from the [facility]. The patient was told that rather than undergo surgery he was to have observation. He recalls [facility] but doesn't recall undergoing any scans in the last 6 months. He had not contacted my office in that timeframe either. Past Medical History: Chronic Problems CAD (coronary artery disease) (Chronic) Esophageal cancer (Chronic) HTN (hypertension) (Chronic) HLD (hyperlipidemia) (Chronic) Tobacco use (Chronic) Past Medical/Surgical History: Past Medical History - Most Recent Inpatient Visit Past Medical History Start: 04/18/19 16:39 Text: Status: Complete Freq: ONCE Protocol: Document 04/18/19 16:39 JL (Rec: 04/18/19 16:43 [facility] [id number]) BMI Required to complete PMH What is Patient's BMI 30.3 Past Medical History Unable History Recalled No Query Text:Pt Unable/Family Not Present Neurologic Medical History Hx Stroke/TIA No Hx Dementia/Alzheimer's No Hx Parkinson's Disease No Hx Seizures No Hx Multiple Sclerosis No Hx Migraines No Cardiac Medical History VTE Present on Admission No Hx of Deep Vein Thrombosis/VTE/PE No Hx Hypertension Yes Hx Chest Pain/Angina No Hx Heart Attack Yes Hx Cardiac Surgery/Stents/Etc. No Hx Heart Failure No Hx Pacemaker/AICD No Hx Irregular Heartbeat and/or Afib No Hx Anticoagulant Therapy No Query Text:(Coumadin, Aspirin, Plavix, Xarelto, etc.) Hx Pain in Legs when Walking/Leg Cramps No Respiratory Medical History Hx COPD Yes Hx Emphysema Yes Smoking Status Current every day smoker Tobacco Use Cigarettes Years Smoking 53 Packs Smoked per Day 2 Hx Smoking Cessation Counseling No Hx Smoking Exposure Yes Hx Tobacco Use in last 12 months Yes Sent to [facility] Yes Hx of Pipe Smoking No Hx of Cigar Smoking No Hx Sleep Apnea No Do you snore loudly (louder than talking No or can be heard through closed doors)? Do you often feel tired/ fatigued/ Yes sleepy during daytime? Has anyone observed you stop breathing Yes during sleep? STOP Results Positive GI Medical History Hx Ulcer No Hx Hepatitis No Hx Cirrhosis No Hx GI Bleed No Hx Unplanned Weight Loss No Genitourinary Medical History Indwelling Catheter in Place on Arrival/ No Admission Hx Renal Disease No Hx Dialysis No Musculoskeletal History Hx Arthritis No Hx Rheumatoid Arthritis No Endocrine Medical History Hx Diabetes Yes Hx Thyroid Disease No Hematologic Medical History Hx of Blood Transfusion No Hx of Transfusion in last 3 Months No Ever experience any problems with No transfusion(s)? Hx of Preganancy in last 3 Months N/A Nurse Filling Out Transfusion & JLAMP Questions: Date: 04/18/19 Time: 16:42 Psycho/Social Medical History Hx Depression Yes Hx Anxiety Yes Hx Behavior Disorder No Hx Alcohol Use No Hx Substance Use No Other Medical History Hx Blood Disorders No Hx Anemia No Hx Cancer Yes: ESOPHGIAL CA Hx Drug Resistant Organism No Wound/Pressure Injury Present on Arrival No /Admission Query Text:If yes, chart assessment in Shift/Clinical Findings Central Line/PICC/VAD Present on Arrival No /Admission Antibiotics within last 7 days? No Risk for Readmission Number of Risk Factors 6 At Risk for Readmission Patient is At Risk For Readmission Patient is eligible for Call Back Y Maternal Family History: Heart Disease Paternal Family History: - - Patient notes a paternal family history of heart disease as well as chronic COPD with a prior tobacco use history. - Social History Lives: Spouse/ Significant Other Smoking Status: Current every day smoker Tobacco Use: Cigarettes Alcohol: None Drugs: None Allergies/Adverse Reactions: Allergy/AdvReac Type Severity Reaction Status Date / Time No Known Allergies Allergy Verified 04/18/19 10:33 Vital Signs Height 1.75 m Weight: 85.2 kg Weight in Pounds 187.8 lbs Pulse Ox 95 Temperature 98.2 F Pulse Rate [11] 112 Pulse Rate [10] 112 Pulse Rate [9] 117 Pulse Rate [8] 110 Pulse Rate [7] 112 Pulse Rate [6] 115 Pulse Rate [5] 117 Pulse Rate [4] 117 Pulse Rate [3] 120 Pulse Rate [2] 120 Pulse Rate [1 (Initial 120 Baseline)] Pulse Rate 96 Respiratory Rate [11] 18 Respiratory Rate [10] 18 Respiratory Rate [9] 20 Respiratory Rate [8] 20 Respiratory Rate [7] 18 Respiratory Rate [6] 18 Respiratory Rate [5] 18 Respiratory Rate [4] 18 Respiratory Rate [3] 18 Respiratory Rate [2] 20 Respiratory Rate [1 (Initial 20 Baseline)] Respiratory Rate 18 Blood Pressure [11] 162/87 Blood Pressure [10] 164/88 Blood Pressure [9] 156/95 Blood Pressure [8] 152/90 Blood Pressure [7] 145/92 Blood Pressure [6] 154/95 Blood Pressure [5] 152/95 Blood Pressure [4] 155/94 Blood Pressure [3] 146/92 Blood Pressure [2] 161/108 Blood Pressure [1 (Initial 160/108 Baseline)] Blood Pressure 118/89 Blood Pressure Position Sitting - Physical Exam General: Alert, Oriented x3 Cardiac:: Regular rhythm Lungs: - - Decreased intensity inspiratory breath sounds all throughout. Occasional scant wheezes on the right appreciated. Abdomen:: - - Mildly distended. Possible fluid wave. Tender. Laboratory Data: Microbiology 04/18/19 15:15 Gram Stain - Final Fluid - Ascites Laboratory Tests 04/19/19 04/19/19 04/19/19 Range/Units 06:10 06:10 06:10 WBC 17.8 H (4.4-11.0) K/mm3 RBC 4.68 (4.6-6.2) M/mm3 Hgb 13.4 (13.0-16.5) g/dl Hct 43.3 (40-54) % MCV 92.5 (80-94) fL MCH 28.6 (27.0-32.0) pg MCHC 30.9 L (32-36) g/gl RDW 14.4 (11.6-14.6) % RDW Differential 47.2 H (35.1-43.9) fl Plt Count 403 (150-450) K/mm3 MPV 10.1 (6.2-12.0) fl Immature Gran % (Auto) 0.300 (0.0-0.9) % Neut % (Auto) 90.8 H (47-70) % Lymph % (Auto) 2.2 L (19-41) % [place] % (Auto) 6.6 (0-10) % Eos % (Auto) 0.0 (0-5) % Baso % (Auto) 0.1 (0-1) % Absolute Neuts (auto) 16.2 H (2.0-7.7) X10^3/uL Absolute Lymphs (auto) 0.39 L (0.83-4.51) X10^3/ul Total Counted Not Reportable Differential Comment PT (11.7-14.9) SECONDS INR APTT 41.3 H (24.1-36.2) Seconds Sodium 136 (136-145) mmol/L Potassium 4.8 (3.5-5.1) mmol/L Chloride 103 (98-107) mmol/L Carbon Dioxide 30.0 (21.0-32.0) mmol/L Anion Gap 3 L (5-15) BUN 29 H (7-18) mg/dL Creatinine 1.10 (0.70-1.30) mg/dL Estim Creat Clear Calc 65.17 ml/min Est GFR (MDRD) Af Amer 86 (>60) mL/min Est GFR (MDRD) Non-Af 71 (>60) mL/min BUN/Creatinine Ratio 26.4 H (10-20) RATIO Glucose 158 H (74-106) mg/dL Lactic Acid (0.4-2.0) mmol/L Calcium 9.0 (8.5-10.1) mg/dL Phosphorus (2.5-4.9) mg/dL Magnesium (1.6-2.6) mg/dL Ammonia (11-32) umol/L Fluid Source Fluid Color Fluid Appearance Fluid Specific Grav Fluid WBC 10^3/uL Fluid RBC /mm3 Fluid Tot Cell Count 10^3/ul Fld Polynuclear WBCs # 10^3/uL Fld Polynuclear WBCs % % Fluid Mononuclear WBCs 10^3/uL Fld Mononuclear WBCs % % Fluid Neutrophils % Fluid Lymphocytes % Fluid Monocytes % Fld Mesothelial Cells % Fluid Other Cells % Fl Pathologist Comment Fluid Glucose (40-70) mg/dL Fluid Total Protein (Not Establ.) g/dL Fluid LDH (Not Establ.) Units/l Fluid Comment 2 04/18/19 04/18/19 04/18/19 Range/Units 23:25 16:32 15:15 WBC (4.4-11.0) K/mm3 RBC (4.6-6.2) M/mm3 Hgb (13.0-16.5) g/dl Hct (40-54) % MCV (80-94) fL MCH (27.0-32.0) pg MCHC (32-36) g/gl RDW (11.6-14.6) % RDW Differential (35.1-43.9) fl Plt Count (150-450) K/mm3 MPV (6.2-12.0) fl Immature Gran % (Auto) (0.0-0.9) % Neut % (Auto) (47-70) % Lymph % (Auto) (19-41) % [place] % (Auto) (0-10) % Eos % (Auto) (0-5) % Baso % (Auto) (0-1) % Absolute Neuts (auto) (2.0-7.7) X10^3/uL Absolute Lymphs (auto) (0.83-4.51) X10^3/ul Total Counted Differential Comment PT (11.7-14.9) SECONDS INR APTT 43.6 H (24.1-36.2) Seconds Sodium (136-145) mmol/L Potassium (3.5-5.1) mmol/L Chloride (98-107) mmol/L Carbon Dioxide (21.0-32.0) mmol/L Anion Gap (5-15) BUN (7-18) mg/dL Creatinine (0.70-1.30) mg/dL Estim Creat Clear Calc ml/min Est GFR (MDRD) Af Amer (>60) mL/min Est GFR (MDRD) Non-Af (>60) mL/min BUN/Creatinine Ratio (10-20) RATIO Glucose (74-106) mg/dL Lactic Acid (0.4-2.0) mmol/L Calcium (8.5-10.1) mg/dL Phosphorus (2.5-4.9) mg/dL Magnesium (1.6-2.6) mg/dL Ammonia 14.0 (11-32) umol/L Fluid Source OTHER Fluid Color YELLOW Fluid Appearance SL CLDY Fluid Specific Grav 1.027 Fluid WBC 0.283 10^3/uL Fluid RBC 22 /mm3 Fluid Tot Cell Count 0.368 10^3/ul Fld Polynuclear WBCs # 0.023 10^3/uL Fld Polynuclear WBCs % 8.1 % Fluid Mononuclear WBCs 0.260 10^3/uL Fld Mononuclear WBCs % 91.9 % Fluid Neutrophils 13 % Fluid Lymphocytes 30 % Fluid Monocytes 5 % Fld Mesothelial Cells 48 % Fluid Other Cells 4 % Fl Pathologist Comment May follow Fluid Glucose (40-70) mg/dL Fluid Total Protein (Not Establ.) g/dL Fluid LDH (Not Establ.) Units/l Fluid Comment 2 SEE COMMENT 04/18/19 04/18/19 04/18/19 Range/Units 15:15 11:23 11:23 WBC (4.4-11.0) K/mm3 RBC (4.6-6.2) M/mm3 Hgb (13.0-16.5) g/dl Hct (40-54) % MCV (80-94) fL MCH (27.0-32.0) pg MCHC (32-36) g/gl RDW (11.6-14.6) % RDW Differential (35.1-43.9) fl Plt Count (150-450) K/mm3 MPV (6.2-12.0) fl Immature Gran % (Auto) (0.0-0.9) % Neut % (Auto) (47-70) % Lymph % (Auto) (19-41) % [place] % (Auto) (0-10) % Eos % (Auto) (0-5) % Baso % (Auto) (0-1) % Absolute Neuts (auto) (2.0-7.7) X10^3/uL Absolute Lymphs (auto) (0.83-4.51) X10^3/ul Total Counted Differential Comment PT (11.7-14.9) SECONDS INR APTT (24.1-36.2) Seconds Sodium (136-145) mmol/L Potassium (3.5-5.1) mmol/L Chloride (98-107) mmol/L Carbon Dioxide (21.0-32.0) mmol/L Anion Gap (5-15) BUN (7-18) mg/dL Creatinine (0.70-1.30) mg/dL Estim Creat Clear Calc ml/min Est GFR (MDRD) Af Amer (>60) mL/min Est GFR (MDRD) Non-Af (>60) mL/min BUN/Creatinine Ratio (10-20) RATIO Glucose (74-106) mg/dL Lactic Acid 1.5 (0.4-2.0) mmol/L Calcium (8.5-10.1) mg/dL Phosphorus 4.1 (2.5-4.9) mg/dL Magnesium 2.4 (1.6-2.6) mg/dL Ammonia (11-32) umol/L Fluid Source Fluid Color Fluid Appearance Fluid Specific Grav Fluid WBC 10^3/uL Fluid RBC /mm3 Fluid Tot Cell Count 10^3/ul Fld Polynuclear WBCs # 10^3/uL Fld Polynuclear WBCs % % Fluid Mononuclear WBCs 10^3/uL Fld Mononuclear WBCs % % Fluid Neutrophils % Fluid Lymphocytes % Fluid Monocytes % Fld Mesothelial Cells % Fluid Other Cells % Fl Pathologist Comment Fluid Glucose 104 H (40-70) mg/dL Fluid Total Protein 4.1 (Not Establ.) g/dL Fluid LDH 171 (Not Establ.) Units/l Fluid Comment 2 04/18/19 04/18/19 Range/Units 11:23 11:23 WBC (4.4-11.0) K/mm3 RBC (4.6-6.2) M/mm3 Hgb (13.0-16.5) g/dl Hct (40-54) % MCV (80-94) fL MCH (27.0-32.0) pg MCHC (32-36) g/gl RDW (11.6-14.6) % RDW Differential (35.1-43.9) fl Plt Count (150-450) K/mm3 MPV (6.2-12.0) fl Immature Gran % (Auto) (0.0-0.9) % Neut % (Auto) (47-70) % Lymph % (Auto) (19-41) % [place] % (Auto) (0-10) % Eos % (Auto) (0-5) % Baso % (Auto) (0-1) % Absolute Neuts (auto) (2.0-7.7) X10^3/uL Absolute Lymphs (auto) (0.83-4.51) X10^3/ul Total Counted Not Reportable Differential Comment COMMENT PT 13.1 (11.7-14.9) SECONDS INR 1.0 APTT 30.2 (24.1-36.2) Seconds Sodium (136-145) mmol/L Potassium (3.5-5.1) mmol/L Chloride (98-107) mmol/L Carbon Dioxide (21.0-32.0) mmol/L Anion Gap (5-15) BUN (7-18) mg/dL Creatinine (0.70-1.30) mg/dL Estim Creat Clear Calc ml/min Est GFR (MDRD) Af Amer (>60) mL/min Est GFR (MDRD) Non-Af (>60) mL/min BUN/Creatinine Ratio (10-20) RATIO Glucose (74-106) mg/dL Lactic Acid (0.4-2.0) mmol/L Calcium (8.5-10.1) mg/dL Phosphorus (2.5-4.9) mg/dL Magnesium (1.6-2.6) mg/dL Ammonia (11-32) umol/L Fluid Source Fluid Color Fluid Appearance Fluid Specific Grav Fluid WBC 10^3/uL Fluid RBC /mm3 Fluid Tot Cell Count 10^3/ul Fld Polynuclear WBCs # 10^3/uL Fld Polynuclear WBCs % % Fluid Mononuclear WBCs 10^3/uL Fld Mononuclear WBCs % % Fluid Neutrophils % Fluid Lymphocytes % Fluid Monocytes % Fld Mesothelial Cells % Fluid Other Cells % Fl Pathologist Comment Fluid Glucose (40-70) mg/dL Fluid Total Protein (Not Establ.) g/dL Fluid LDH (Not Establ.) Units/l Fluid Comment 2 Diagnostic Data: Diagnostic Data Abdomen/Pelvis CT 04/18/19 10:52 IMPRESSION: Dilated thickened fluid-filled esophagus (statistically related to patient's history of esophageal cancer; aspiration precautions recommended) 3 cm right adrenal nodule concerning for possible metastatic disease Diffuse heterogeneous mesenteric nodularity concerning for 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 : The above information has been verbally conveyed by Bryant Lancaster DO to Gregg Snell MD, on 04/18/2019 13:22:25 (ET). 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 : The above information has been verbally conveyed by Bryant Lancaster DO to Dr Channing MD, on 04/18/2019 13:33:56 (ET). Electronically Signed: Bryant Lancaster DO at 13:18 EDT Tel , Service support , Paracentesis Ultrasound 04/18/19 13:11 IMPRESSION: Uneventful paracentesis Electronically Signed: Delaney Navarro, at 16:35 EDT Tel , Service support , Assessment and Plan 1) Adenocarcinoma of the distal esophagus. Assessment: -Status post concurrent chemotherapy and radiation completed August 2018. -Course of medical event since then not clear. -Patient now presents with ascites and radiologic evidence of metastatic disease, i.e. omental caking along with adrenal nodule. -Esophagus remains significantly dilated radiographically. Plan: -Await cytology. If negative, then request HER-2 analysis on original tumor biopsy specimen. -Chemotherapy with non-anthracycline based regimens. -Please schedule patient for weekly ultrasound/possible paracentesis as outpatient. -Will need repeat EGD to assess possible radiation stricture/tumor recurrence. -I would favor indefinite anticoagulation with Lovenox since patient may need biopsies during EGD and will likely have to undergo multiple paracenteses in the future. -Okay for discharge from oncologic standpoint. -Can follow-up with me for further management of his metastatic disease pending approval by his insurance. Medications: Prescriptions This Visit Medication Instructions Recorded Atorvastatin Calcium 40 mg PO DAILY 04/18/19 Hydrocodone/Acetaminophen 1 tab PO TID PRN PRN 04/18/19 [Hydrocodone-Acetamin 10-325 mg] Meloxicam 15 mg PO DAILY 04/18/19 Metoprolol Succinate 50 mg PO DAILY 04/18/19 Omeprazole [Prilosec] 40 mg PO DAILY 04/18/19 Medications Added to Medication List This Visit Category Date Time Status 0.9% Normal Saline 1,000 ml Med 04/19/19 08:54 Active IV 75 mls/hr Metoprolol Tartrate [Lopressor (Beta Emilie)] Med 04/19/19 22:00 Ordered 12.5 mg PO BID Metoprolol(XL)Succ [Toprol Xl (Beta Emilie)] Med 04/19/19 10:00 Active 50 mg PO DAILY Primary Care Provider: No Primary Care Phys Referring Provider: Suki Parrish MD
[2019-04-19] MEDS: Ondansetron 4 MG/2 ML Vial IV (12:17)
[2019-04-19] MEDS: HEPARIN/D5w 25,000 UNITS 25,000 UNITS/250 ML IV.SOLN. 12 UNITS IV (13:26)
--- NOTE | 2019-04-19 16:46 | CASEMGMT ---
DARLENE MEDINA assessment: Face to Face with patient for initial transition planning/care coordination assessment. DARLENE MEDINA introduced self and role at [facility], pt voices understanding and consents to assessment at this time. Pt is lying in chair in no distress at this time. Pt is A/Ox4 at this time and answers all questions appropriately at this time. Care providers, pharmacy, and demographics verified at this time. PCP: Ally Specialists: [facility] Preferred Pharmacy: [facility] Insurance: MCR A only but states MCR B and D will kick in after the end of March Prescription Benefit: None currently, see above Living Will/HPOA: Pt does not have LW/HPOA and declines info at this time. LNOK: Jodi Childress, Living Arrangements: Pt states lives with in mobile home with ramp entrance and states no concerns at home at this time. Pt is independent with ADL's. Transportation: Pt states he drives himself and states no transportation concerns at this time. DME/HHC: Pt states has the following DME: w/c, walker, cane, and cpap(states he does not use). Pt states no need for any further DME at this time. Pt states no hx of HHC or SNF in the past. Pt states no concerns with going home at time of discharge. Pt is retired. Pt states smokes about a 1/2pk/day and does not drink ETOH. Pt states no further questions/concerns/needs at this time. CM to follow for any further discharge planning/needs. Advised pt to ask for CM if any further questions/concerns/needs arise, voices understanding. Pt Goal: Home Plan[place] DARLENE MEDINA
[2019-04-19] MEDS: Ensure Clear 120 ML Liquid PO (17:55)
[2019-04-19] MEDS: BMX LIQUID 180 ML 10 ML PO (17:56)
[2019-04-19] MEDS: Atorvastatin Calcium 40 MG Tablet PO (20:34)
[2019-04-19 21:08] LABS: Partial Thromboplast Time 53.3 Seconds (24.1-36.2)
[2019-04-20] VITALS (8 sets, daily range): BP systolic 120–135; BP diastolic 75–86; PULSE 93–108; RESP 17–18; TEMP 36.5–36.7; O2SAT 95–97
[2019-04-20 02:12] LABS: Acid Fast Stain SEE PATHOLOGY REPORT; Cytology, Body Fluid / CSF SEE PATHOLOGY REPORT
[2019-04-20] MEDS: LORazepam 0.5 MG Tablet PO ×3 (03:05→14:03)
[2019-04-20] MEDS: oxyCODONE 5 MG Tablet PO ×3 (03:05→14:03)
[2019-04-20 03:46] LABS: Absolute Lymphocyte Count 0.55 X10^3/ul (0.83-4.51); Absolute Neutrophil Count 17.7 X10^3/uL (2.0-7.7); Basophil# 0.01 X10^3/uL; Eosinophil# 0.02 X10^3/uL; Eosinophils% 0.1 % (0-5); Hematocrit 40.5 % (40-54); Hemoglobin 12.7 g/dl (13.0-16.5); Lymphocyte # 0.55 X10^3/ul (4.0); Lymphocyte % 2.7 % (19-41); Mean Corp Hgb Conc 31.4 g/gl (32-36); Mean Corpuscular Hgb 29.1 pg (27.0-32.0); Mean Corpuscular Volume 92.9 fL (80-94); Mean Platelet Vol. 9.9 fl (6.2-12.0); Monocyte# 1.79 X10^3/uL; Monocyte% 8.9 % (0-10); Neutrophil # 17.66 X10^3/uL (2.7-7.7); Platelet Count 424 K/mm3 (150-450); RBC Distribution Width CV 14.6 % (11.6-14.6); RBC Distribution Width SD 47.8 fl (35.1-43.9); Red Blood Count 4.36 M/mm3 (4.6-6.2); White Blood Count 20.1 K/mm3 (4.4-11.0)
[2019-04-20 03:47] LABS: Differential Indicated SCAN CRITERIA MET; POSITIVE COUNT NO; POSITIVE DIFFERENTIAL YES; POSITIVE MORPHOLOGY NO
[2019-04-20 04:11] LABS: Anion Gap 5 (5-15); BUN 28 mg/dL (7-18); BUN/Creat Ratio 30.5 RATIO (10-20); Calcium,Total 9.1 mg/dL (8.5-10.1); Chloride 101 mmol/L (98-107); Creatinine, Serum 0.92 mg/dL (0.70-1.30); EST Glomerular Filtration Rate 87 mL/min (>60); Est Glom Filt Rate - Afr Amer 106 mL/min (>60); Estimated Creatinine Clearance 77.92 ml/min; Glucose 122 mg/dL (74-106); Potassium 5.9 mmol/L (3.5-5.1); Sodium Level 136 mmol/L (136-145)
[2019-04-20 04:36] LABS: Differential Comment SCAN
[2019-04-20] MEDS: HEPARIN/D5w 25,000 UNITS 25,000 UNITS/250 ML IV.SOLN. 12 UNITS IV (05:26)
[2019-04-20] MEDS: Sodium Polystyrene Sulfonate 15 GM/60 ML UDC 30 GM PO (07:40)
[2019-04-20] MEDS: BMX LIQUID 180 ML 10 ML PO ×2 (07:56→14:06)
[2019-04-20] MEDS: Metoprolol(XL)Succ 100 MG Tablet 50 MG PO (10:06)
[2019-04-20] MEDS: Pantoprazole Sodium 40 MG Tablet PO ×2 (10:06→17:47)
[2019-04-20] MEDS: Ensure Clear 120 ML Liquid PO (10:06)
[2019-04-20] MEDS: 0.9% NaCl Peripheral Flush Adult/Peds IV (10:17)
[2019-04-20] MEDS: Enoxaparin 80 MG/0.8 ML Syringe SC ×2 (10:19→17:48)
[2019-04-20 12:39] LABS: Potassium 4.5 mmol/L (3.5-5.1)
[2019-04-20 13:20] LABS: White Blood Count 18.3 K/mm3 (4.4-11.0)
--- NOTE | 2019-04-20 13:52 | DCINST_ITS ---
- Discharge Diagnoses Current Active Problems: Current Active and Chronic Problems Metastatic cancer (Acute) Ascites, malignant (Acute) CAD (coronary artery disease) (Chronic) Esophageal cancer (Chronic) HTN (hypertension) (Chronic) HLD (hyperlipidemia) (Chronic) Tobacco use (Chronic) Esophagus cancer (Acute) You will use the following diet at home:: Cardiac Your food should be the consistency of: Regular Discharge Activity: Return to Normal Activity Weight Bearing Status: Weight bearing as tolerated Call your doctor if you observe: Fever of 101 or Higher, Shortness of breath, Dizziness, Fainting spells, Chest pain, Increased palpitations (irregular heartbeat), Uncontrolled pain Instructions: Paracentesis, Enoxaparin Sodium (Porcine) Solution for injection Allergies/Adverse Reactions: Allergies No Known Allergies Allergy (Verified 04/18/19 10:33) Medications to take at Discharge Atorvastatin Calcium 40 mg PO DAILY 04/18/19 Hydrocodone/Acetaminophen [Hydrocodone-Acetamin 10-325 mg] 1 tab PO TID PRN PRN 04/18/19 Meloxicam 15 mg PO DAILY 04/18/19 Metoprolol Succinate 50 mg PO DAILY 04/18/19 Bmx Liquid 10 ml PO Q3H PRN PRN #2 ml 04/20/19 Enoxaparin [Lovenox] 80 mg SUBCUT Q12@0600,1800 #30 syringe 04/20/19 Pantoprazole Sodium [Protonix] 40 mg PO BID #30 tab 04/20/19 The following prescriptions were given: Bmx Liquid 10 ml PO Q3H PRN PRN #2 ml PRN Reason: HEARTBURN OR INDIGESTION Prescription Printed Enoxaparin [Lovenox] 80 mg SUBCUT Q12@0600,1800 #30 syringe Prescription Printed Pantoprazole Sodium [Protonix] 40 mg PO BID #30 tab Prescription Printed Primary Care Physician: Care Physician,No Primary [Primary Care Provider] - Please follow up with your Primary Care Physician in: 1 week. Test Results: Test results from this visit will be discussed in further detail at your follow- up appointment, if applicable. Please Follow Up With: Ketan Inman DO When: this coming week.
--- NOTE | 2019-04-20 15:34 | DS.PCM_ITS ---
Discharge Date and Diagnosis - Problem List Patient Problems: Active and Suspected Problems Metastatic cancer (Acute) Ascites, malignant (Acute) Esophagus cancer (Acute) Date of Admission: 04/18/19 Date of Discharge: 04/20/19 - Primary Discharge Diagnosis Active and Suspected Problems #1 massive ascites, probably malignant ascites. #2 metastatic disease of the abdomen, primary is adenocarcinoma of the distal esophagus. #3 probable left ventricular thrombus. #4 adenocarcinoma of the distal esophagus. #5 reactive leukocytosis. #6 mild hyperkalemia, resolved. - Secondary Discharge Diagnosis Chronic Problems CAD (coronary artery disease) (Chronic) Esophageal cancer (Chronic) HTN (hypertension) (Chronic) HLD (hyperlipidemia) (Chronic) Tobacco use (Chronic) Hospital Course and Treatment Imaging Results: Clinical Impression(s) from Imaging Studies Abdomen/Pelvis CT 04/18/19 10:52 IMPRESSION: Dilated thickened fluid-filled esophagus (statistically related to patient's history of esophageal cancer; aspiration precautions recommended) 3 cm right adrenal nodule concerning for possible metastatic disease Diffuse heterogeneous mesenteric nodularity concerning for 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 : The above information has been verbally conveyed by Bryant Lancaster DO to Gregg Snell MD, on 04/18/2019 13:22:25 (ET). 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 : The above information has been verbally conveyed by Bryant Lancaster DO to Dr Channing MD, on 04/18/2019 13:33:56 (ET). Electronically Signed: Bryant Lancaster DO at 13:18 EDT Tel , Service support , Paracentesis Ultrasound 04/18/19 13:11 IMPRESSION: Uneventful paracentesis Electronically Signed: Delaney Navarro, at 16:35 EDT Tel , Service support , Dr. Inman, oncology. Dr. Giordano, cardiology. Procedures: 2-D Echocardiogram, EKG Summary of Care Provided: Patient seen and examined on the day of discharge and appeared to be stable to be discharged home. They, he denies any abdominal pain. Still complaining of epigastric pain and discomfort as well as heartburn. His vital signs are stabl e. This is a 69 years old male patient presented to the emergency room because of abdominal pain with mild shortness of breath, was found to have massive ascites status post diagnostic and therapeutic paracentesis, found to have possible left ventricular apical thrombus with ejection fraction of 35%. #1 massive ascites probably malignant ascites/metastatic cancer: With past history of adenocarcinoma of the distal esophagus. Status post paracentesis, more than 7 L taken out. Ascitic fluid cytology was pending at the time of discharge. CT scan abdomen and pelvis with IV contrast revealed right adrenal nodule, diffuse heterogenous mesenteric nodularity concerning for mesenteric carcinomatosis with ascites. Patient was treated with IV fluids, IV morphine and OxyIR PRN for pain. Oncology consulted, recommended to wait ascitic fluid cytology, recommended chemotherapy with non-anthracycline based regimen, weekly ultrasound and possible paracentesis as outpatient which will be scheduled by Dr. Inman. Plan to follow-up with oncology this week. #2 probable left ventricular thrombus: Treated with on IV heparin drip. 2D echocardiogram revealed moderate LVH, EF of 35%. Cardiology consulted and agreed to switch patient to therapeutic Lovenox injections twice daily according to oncology recommendation. Patient discharged on Lovenox 80 mg subcu twice daily. #3 cardiomyopathy: Ejection fraction of 35%. 2D echocardiogram revealed ejection fraction of 35%, moderately dilated left ventricle, akinetic inferior apex, anterior apex, possible LV apical thrombus, RVSP 40 consistent with mild pulmonary hypertension. At this time, no evidence of acute CHF. Patient has history of CAD but no intervention in the past. He had stress echocardiogram back on January, that revealed ejection fraction of 35% as well. Cardiology consulted, started on beta-blockers and recommended that further cardiac work-up for cardiomyopathy will depend on his prognosis in regards to the possible metastatic cancer. Dr. Davis agreed to discharge patient on Lovenox injections twice daily. #4 Adenocarcinoma of the distal esophagus : Diagnosed on August,, received chemotherapy and radiation. He has been following up with Dr. Inman. CT scan abdomen findings reviewed, revealed dilated and thickened fluid-filled esophagus. Plan as above. Patient discharged home in a stable medical condition, discharged on metoprolol, discharged on Protonix as well as BMX liquid, discharged on therapeutic Lovenox injections twice daily plan to follow-up with oncology this coming week, recommended follow-up with PCP in 1 week. This note was generated with [employer] dictation software. It may contain incorrect words, spelling, and punctuation that were not noted in checking the note before signing. Patient Problems: Active and Suspected Problems Metastatic cancer (Acute) Ascites, malignant (Acute) Esophagus cancer (Acute) - Physical Exam General: Alert, Oriented x3, Cooperative, No apparent distress HEENT: Atraumatic, PERRLA, EOMI, Normocephalic Oral: Moist Mucosa, No Gingival or Mucosal Lesions/ Ulcerations Neck: Supple, No JVD, Negative Carotid Bruits Lungs: Clear to auscultation, No rhonchi, No wheeze, No rales, Diminished Cardiovascular: Regular rate, Regular Rhythm, Normal S1, Normal S2, PMI Normal Abdomen: Bowel Sounds Present, Soft, Non-Distended, No Hepato-splenomegaly, Distended Extremities: No clubbing, No cyanosis, No edema Skin: No rashes, No breakdown Lymphatic: No Cervical, Supraclavicular, or Inguinal Adenopathy Neurological: Cranial nerves II-XII grossly intact, Neuro grossly intact Psych/Mental Status: Normal Affect, Appropriate Vital Signs Temp Pulse Resp BP Pulse Ox 98 F 108 H 18 135/84 H 95 04/20/19 10:02 04/20/19 12:41 04/20/19 10:02 04/20/19 10:06 04/20/19 10:02 Oxygen Flow Rate (L/min) 2 Oxygen Delivery Method [11] Room Air Oxygen Delivery Method [10] Room Air Oxygen Delivery Method [9] Room Air Oxygen Delivery Method [8] Room Air Oxygen Delivery Method [7] Room Air Oxygen Delivery Method [6] Room Air Oxygen Delivery Method [5] Room Air Oxygen Delivery Method [4] Room Air Oxygen Delivery Method [3] Room Air Oxygen Delivery Method [2] Room Air Oxygen Delivery Method [1 ( Room Air Initial Baseline)] Oxygen Delivery Method Room Air Weight: 187 lb 13.341 oz Body Mass Index (BMI) 27.7 Intake and Output for Last 24 Hours 04/18/19 04/19/19 04/20/19 23:59 23:59 23:59 Intake Total 1326.3 / 1326.3 3683.1 / 3683.1 749 / 749 Output Total 575 / 575 325 / 325 Balance 751.3 / 751.3 3358.1 / 3358.1 749 / 749 Microbiology Past 72 Hours 04/18/19 15:15 Gram Stain - Final Fluid - Ascites Body Fluid Culture - Preliminary No growth-Final to follow Laboratory Tests Past 24 Hrs 04/18/19 04/19/19 04/20/19 13:45 20:32 03:30 WBC 20.1 H RBC 4.36 L Hgb 12.7 L Hct 40.5 MCV 92.9 MCH 29.1 MCHC 31.4 L RDW 14.6 RDW Differential 47.8 H Plt Count 424 MPV 9.9 Immature Gran % (Auto) 0.300 Neut % (Auto) 88.0 H Lymph % (Auto) 2.7 L [place] % (Auto) 8.9 Eos % (Auto) 0.1 Baso % (Auto) 0.0 Absolute Neuts (auto) 17.7 H Absolute Lymphs (auto) 0.55 L Total Counted Not Reportable Differential Comment SCAN Diff Path Review May foll APTT 53.3 H Sodium Potassium Chloride Carbon Dioxide Anion Gap BUN Creatinine Estim Creat Clear Calc Est GFR (MDRD) Af Amer Est GFR (MDRD) Non-Af BUN/Creatinine Ratio Glucose Calcium Acid Fast Stain Pending Miscellaneous Cytology Pending 04/20/19 04/20/19 04/20/19 03:30 03:30 12:26 WBC RBC Hgb Hct MCV MCH MCHC RDW RDW Differential Plt Count MPV Immature Gran % (Auto) Neut % (Auto) Lymph % (Auto) [place] % (Auto) Eos % (Auto) Baso % (Auto) Absolute Neuts (auto) Absolute Lymphs (auto) Total Counted Differential Comment Diff Path Review APTT 62.0 H Sodium 136 Potassium 5.9 H 4.5 Chloride 101 Carbon Dioxide 30.0 Anion Gap 5 BUN 28 H Creatinine 0.92 Estim Creat Clear Calc 77.92 Est GFR (MDRD) Af Amer 106 Est GFR (MDRD) Non-Af 87 BUN/Creatinine Ratio 30.5 H Glucose 122 H Calcium 9.1 Acid Fast Stain Miscellaneous Cytology 04/20/19 12:26 WBC 18.3 H RBC Hgb Hct MCV MCH MCHC RDW RDW Differential Plt Count MPV Immature Gran % (Auto) Neut % (Auto) Lymph % (Auto) [place] % (Auto) Eos % (Auto) Baso % (Auto) Absolute Neuts (auto) Absolute Lymphs (auto) Total Counted Differential Comment Diff Path Review APTT Sodium Potassium Chloride Carbon Dioxide Anion Gap BUN Creatinine Estim Creat Clear Calc Est GFR (MDRD) Af Amer Est GFR (MDRD) Non-Af BUN/Creatinine Ratio Glucose Calcium Acid Fast Stain Miscellaneous Cytology Discharge Activity: Return to Normal Activity Weight Bearing Status: Weight bearing as tolerated Call your doctor if you observe: Fever of 101 or Higher, Shortness of breath, Dizziness, Fainting spells, Chest pain, Increased palpitations (irregular heartbeat), Uncontrolled pain Home Medications: Medications to take at Discharge Atorvastatin Calcium 40 mg PO DAILY 04/18/19 Hydrocodone/Acetaminophen [Hydrocodone-Acetamin 10-325 mg] 1 tab PO TID PRN PRN 04/18/19 Meloxicam 15 mg PO DAILY 04/18/19 Metoprolol Succinate 50 mg PO DAILY 04/18/19 Bmx Liquid 10 ml PO Q3H PRN PRN #2 ml 04/20/19 Enoxaparin [Lovenox] 80 mg SUBCUT Q12@0600,1800 #30 syringe 04/20/19 Pantoprazole Sodium [Protonix] 40 mg PO BID #30 tab 04/20/19 Following Prescrptions Were Given to Patient: Bmx Liquid 10 ml PO Q3H PRN PRN #2 ml PRN Reason: HEARTBURN OR INDIGESTION Prescription Printed Enoxaparin [Lovenox] 80 mg SUBCUT Q12@0600,1800 #30 syringe Prescription Printed Pantoprazole Sodium [Protonix] 40 mg PO BID #30 tab Prescription Printed Primary Care Physician: Care Physician,No Primary [Primary Care Provider] - Please follow up with your Primary Care Physician in: 1 week. Please Follow Up With: Ketan Inman, DO When: this coming week. Patient Instructions: Enoxaparin Sodium (Porcine) Solution for injection, Paracentesis Disposition: Home Minutes spent on discharge:: 34 Patient Condition:: Stable Medical Necessity - Tobacco Use Smoking Status: Current every day smoker Tobacco Use: Cigarettes Meaningful Use Info Meaningful Use Diagnoses (Choose all that apply): None applicable Code Visit Inpatient E&M: 58837 Disch Hosp
--- NOTE | 2019-04-20 16:18 | NURSING ---
Lovenox pricing of $268.69 for 30 syringes at [facility] with use of [facility]. Patient states that he is able to afford the cost.
--- NOTE | 2019-04-20 18:25 | NURSING ---
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 Patient and son in law demonstrated confidence of lovenox injections reviewed dc instructions
--- NOTE | 2019-04-21 11:29 | CASEMGMT ---
Addendum entered by Anat Victor 04/21/19 11:45: Clinicals faxed to [facility], [place] at this time. Kathleen COLON CM Original Note: This RN CM received message from pt's to call her back as she had some questions. Call to pt's , Jodi Childress, at this time and she has questions about financial assistance thru the hospital with bills. This RN CM provided with number to [facility] at this time. voices understanding and states no further questions/concerns/needs at this time. Kathleen COLON CM
[2019-04-21 14:30] LABS: Pathologist Review Reviewed
[2019-04-23 08:58] LABS: pH, Body Fluid 11254 7.4 (Not Estab.)
== END 2019-04-20 18:02 | disposition home or self-care (01) | DRG 375 ==
LOC: ED 14:53 → MS3 16:15 → PCU 16:31
PROVIDERS: Nurse Practitioner Family; Admitting Provider Family Medicine; Emergency Provider Emergency Medicine; Referring Provider Family Medicine; Visit Provider Hospitalist
DX: C78.6 Secondary malignant neoplasm of retroperitoneum and peritoneum (principal); I42.9 Cardiomyopathy, unspecified; R18.0 Malignant ascites; C15.5 Malignant neoplasm of lower third of esophagus; I51.3 Intracardiac thrombosis, not elsewhere classified; E87.5 Hyperkalemia; I10 Essential (primary) hypertension; E78.5 Hyperlipidemia, unspecified; I25.10 Atherosclerotic heart disease of native coronary artery without angina pectoris; F17.210 Nicotine dependence, cigarettes, uncomplicated; D72.828 Other elevated white blood cell count; Z92.21 Personal history of antineoplastic chemotherapy; Z92.3 Personal history of irradiation
CPT/HCPCS: 36415; 49083; 74177; 80048; 80076; 81002; 82140; 82945; 83605; 83615; 83690; 83735; 83986; 84100; 84132; 84157; 85025; 85048; 85610; 85730; 87070; 87075; 87205; 88108; 88305; 88313; 89050; 92507; 92610; 93306; 97802; 99284; 99406; J7030; J7040; Q9957; Q9967; A4216; C8929; J2405

== ENCOUNTER → 2019-04-29 11:28 | Outpatient (CLI) | payer MEDICARE, SELFPAY ==
[2019-04-18 16:39] VITALS: BMI 27.7
--- NOTE | 2019-04-29 | FLU_PTH ---
PATIENT: BUTCH SUH LOC: [facility]#:[id number] AGE/SX: 75/M ROOM: RE04/29/[address]: Dr. Ketan Inman DO : 1950 BED: DIS: SPEC #: [id number] RECD: 04/29/19 14:13 STATUS: MAMTA CAYDEN #: [id number] ANDREINA: 04/29/19 00:[address]: Ketan Inman DEPT: CYTOLOGY RECD BY: Dany Schultz ENTERED: 04/29/19 14:14 SP TYPE: Fluid OTHR DR: No Primary Care Phys Tissues: Gastric mucous membrane Procedures: Special Stain Group II Surgery Specimen Level IV Cytospin Fluid HEADER OPERATION: Ultrasound paracentesis PRE-OP DIAGNOSIS: Ascites, esophageal CA TISSUE SUBMITTED: Paracentesis fluid for cytology DIAGNOSIS CYTOLOGY Paracentesis fluid for cytology (cytospin and cell block): Positive for malignant cells consistent with metastatic non small cell carcinoma. See comment. AM:deborah 04/30/19 COMMENT Immunohistochemistry ([id number]) supports the above diagnosis and favors and upper GI/esophageal primary. Case has been reviewed in consultation with Dr. Booker who concurs with the above diagnosis. IDC:SJ CYTOLOGY STUDY Slides are reviewed. CYTOLOGY GROSS Received is 110 ml of yellow cloudy fluid labeled with the patient's name and and designated per the requisition as paracentesis. Submitted for cytology preparation including cell block. / 04/29/19 TC:0 CPT: 56254, 19553
--- NOTE | 2019-04-29 | IMM_PTH ---
PATIENT: BUTCH SUH LOC: U#:[id number] AGE/SX: 75/M ROOM: RE04/29/[address]: Dr. Ketan Inman DO : 1950 BED: DIS: SPEC #: [id number] RECD: 04/30/19 10:52 STATUS: MAMTA RELivia #: [id number] ANDREINA: 04/29/19 00:[address]: Ketan Inman DEPT: IMMUNOHISTOCHEMISTRY RECD BY: Karon Layton ENTERED: 04/30/19 10:54 SP TYPE: IMMUNO OTHR DR: No Primary Care Phys Tissues: PARACENTESIS FLUID Procedures: Fernandez Ret (add) CEA (add) CK14 (add) CK19 (add) CK20 (add) CK5-6 (add) ACOSTA-2 (add) PRAKASH (add) KI-67 (add) P53 (add) P40 (add) CDX2 (add) CK7 (initial) PHYSICIAN & INSTITUTION [address] [address] SPECIMEN INFORMATION: Tissue Source: Paracentesis fluid Clinical Info: Ascites, esophageal CA Specimen Number: [id number] CPT code: 05372, 13260 x12 METHODOLOGY: Deparaffinized sections of prefer/formalin-fixed tissue or PAP/DQ stained slides are incubated with monoclonal/polyclonal antibodies/oligonucleotide probes. Localization is made via biotin free immunoperoxidase method. Appropriate controls are performed and reacted as expected. Results on target cell population are indicated in the following table: RESULTS: ANTIBODY / CLONE RESULT CK7 (OV-TL12/30) positive CK20 (KS20.8) negative P40 (BC28) negative CK19 (A53-B/A2.26) positive CK5-6 (D5 & 1684) negative CK14 (LL002) negative Ki-67 (30-9) negative CEA (11-7/TF-3HB-1) positive PRAKASH (E29) positive P53 (DO-7) negative CALRET (polyclonal) negative ACOSTA-2 (SP21) positive, focal CDX2 ([id number]) negative These tests were developed and their performance characteristics determined by [facility]. They may not have been cleared or approved by the U.S. Food and Drug Administration. The FDA has determined that such clearance or approval is not necessary. INTERPRETATION: Paracentesis fluid: Positive for malignant cells, consistent with metastatic non-small cell carcinoma. AM:deborah 05/05/19 Comment: An esophageal/upper GI tract is favored. Case has been reviewed in consultation with Dr. Booker who concurs with the above diagnosis. IDC:SJ
--- NOTE | 2019-04-29 11:58 | US_ITS ---
PROCEDURE: Ultrasound guided paracentesis. DATE OF EXAMINATION: April 29, 2019. INDICATION: Male, 69 years old. Ascites. PHYSICIAN: Heber Barclay M.D. TECHNIQUE: The risks, benefits, and alternatives to the procedure were explained to the patient. The specific risks of bleeding, infection, and damage to bowel were detailed and accepted. Witnessed informed consent was obtained. The abdomen was ultrasonographically surveyed. An appropriate pocket of fluid was identified at the right lower quadrant. The skin were cleaned and prepped in the usual sterile fashion. Using ultrasound guidance, the peritoneal cavity was accessed with a 5-Ivorian paracentesis needle/catheter system. The trocar was removed. A total of 4820 ml of xochitl-colored fluid were removed from the peritoneal cavity. A sample was sent to the laboratory for analysis. The catheter was removed and a sterile dressing was applied. The procedure was well tolerated. US/Paracentesis with US IMPRESSION: Ultrasound guided paracentesis. Electronically Signed: Heber Barclay, at 13:48 EDT , Service support ,
[2019-04-29 12:13] LABS: Prothrombin Time (Protime)PT. 13.3 SECONDS (11.7-14.9)
[2019-04-29 13:10] VITALS: BP 109/70; BP 110/70; BP 116/77; PULSE 101; PULSE 96; PULSE 98; RESP 18; RESP 8; O2SAT 97; O2SAT 98
[2019-04-29 13:49] LABS: Cytology, Body Fluid / CSF SEE PATHOLOGY REPORT
[2019-04-29 14:29] LABS: Protein, Body Fluid 3.7 g/dL (Not Establ.)
[2019-04-29 14:58] LABS: Color/Body Fluid YELLOW
[2019-04-29 14:59] LABS: Appearance/Body Fluid SL CLDY
[2019-04-29 15:02] LABS: Source- Body Fluid PERITONEAL FLUID
[2019-04-29 16:42] LABS: Auto B Fluid Analyzer BKGD Ct COUNTS W/IN LIMITS (W/IN LIMITS); Body Fluid Total Cells Counted 0.397 10^3/ul
[2019-04-29 16:43] LABS: White Blood Count/Body Fluid 0.319 10^3/uL
[2019-04-29 16:44] LABS: Lymphocytes 23 %; Monocytes 34 %; Neutrophil (Segs) 11 %
[2019-04-29 16:45] LABS: Macrophages 32 %
[2019-04-30 14:31] LABS: Pathologist Comment/Body Fluid Reviewed
== END ==
PROVIDERS: Referring Provider Internal Medicine Hematology & Oncology; Visit Provider Internal Medicine Hematology & Oncology
DX: R18.8 Other ascites (principal); C15.9 Malignant neoplasm of esophagus, unspecified
CPT/HCPCS: 36415; 49083; 84157; 85610; 88108; 88305; 88313; 88341; 88342; 89050